=== PATIENT | female | born 1990 | race Caucasian/White ===

== ENCOUNTER 2019-01-01 08:55 | Inpatient (IN) | payer OTHER ==
[2019-01-01] MEDS ORDERED: ceFAZolin 2 GM in Premix Bag 1 BAG IV ONE (09:09)
[2019-01-01] MEDS ORDERED: Sodium Chloride 0.9% 10 ML Syringe FLUSH PRN (09:09)
[2019-01-01] MEDS ORDERED: Sodium Chloride 0.9% 10 ML SDV IV PRN (09:09)
[2019-01-01] MEDS ORDERED: Citric Acid/Sodium Citrate Solution 30 ML Cup PO ONE (09:09)
[2019-01-01] MEDS ORDERED: Sodium Chloride 0.9% 2.5 ML Syringe FLUSH PRN (09:09)
[2019-01-01] MEDS: Lactated Ringers 1,000 ML IV SCH ×2 (09:10→11:09)
[2019-01-01] MEDS ORDERED: Oxytocin/0.9 % Sodium Chloride 30 UNIT/500 ML BAG IV SCH (09:15)
--- NOTE | 2019-01-01 10:22 | PCM.LDHP ---
L&D History of Present Illness - General Date of Service: 01/01/19 Admit Problem/Dx: Patient Status Order with Admit Dx/Problem 01/01/19 09:09 Patient Status [ADT] Routine Admission Diagnosis/Problem Admission Diagnosis/Problem Source of Information: Patient History Limitations: Reports: No Limitations - History of Present Illness Improves with: Reports: None Worsens with: Reports: None Associated Symptoms: Reports: N - Related Data Allergies/Adverse Reactions: Allergies Allergy/AdvReac Type Severity Reaction Status Date / Time No Known Allergies Allergy Verified 12/27/18 11:16 Home Medications: Home Meds valACYclovir [Valtrex] 500 mg PO DAILY 10/30/18 [History] PNV95/Ferrous Fumarate/FA [ Tablet] 1 tab PO DAILY 12/27/18 [History] Past Medical History Gastrointestinal History: Reports: Other (See Below) Other Gastrointestinal History: occasional heartburn during Other Genitourinary History: hx of Vaginal Herpes [employer]EL[employer]KER History: Reports: Dermatologic History: Reports: Other (See Below) Other Dermatologic History: vaginal herpes - Past Surgical History Female Surgical History: Reports: Section Social & Family History - Tobacco Use Smoking Status *Q: Never Smoker - Recreational Drug Use Recreational Drug Use: No Drug Use in Last 12 Months: No H&P Review of Systems - Review of Systems: Review Of Systems: See Below General: Reports: No Symptoms HEENT: Reports: No Symptoms Pulmonary: Reports: No Symptoms Cardiovascular: Reports: No Symptoms Gastrointestinal: Reports: No Symptoms Genitourinary: Reports: No Symptoms Musculoskeletal: Reports: No Symptoms Skin: Reports: No Symptoms Psychiatric: Reports: No Symptoms Neurological: Reports: No Symptoms Hematologic/Lymphatic: Reports: No Symptoms Immunologic: Reports: No Symptoms L&D Exam - Exam Exam: See Below - Vital Signs Weight: 58.513 kg - OB Specific Fundal Height In cm: 38 Contraction Intensity: Moderate - Exam General: Alert, Oriented HEENT: PERRLA, Conjunctiva Clear, EACs Clear, EOMI, Hearing Intact, Mucosa Moist & [place], Nares Patent, Normal Nasal Septum, Posterior Pharynx Clear, TMs Clear Neck: Supple, Trachea Midline Lungs: Clear to Auscultation, Normal Respiratory Effort Cardiovascular: Regular Rate, Regular Rhythm GI/Abdominal Exam: Normal Bowel Sounds, Soft, Non-Tender, No Organomegaly, No Distention, No Abnormal Bruit, No Mass, Pelvis Stable Rectal Exam: Normal Exam, Normal Rectal Tone Genitourinary: Normal external exam, Normal bimanual exam, Normal speculum exam Back Exam: Normal Inspection, Full Range of Motion Extremities: Normal Inspection, Normal Range of Motion, Non-Tender, No Pedal Edema, Normal Capillary Refill Skin: Warm, Dry, Intact Neurological: Cranial Nerves Intact, Reflexes Equal Bilateral Psychiatric: Alert, Normal Affect, Normal Mood - Patient Data Lab Results Last 24 hrs: Laboratory Results - last 24 hr 01/01/19 Range/Units 09:32 WBC 6.28 (4.0-11.0) K/uL RBC 4.59 (4.30-5.90) M/uL Hgb 14.1 (12.0-16.0) g/dL Hct 41.9 (36.0-46.0) % MCV 91.3 (80.0-98.0) fL MCH 30.7 (27.0-32.0) pg MCHC 33.7 (31.0-37.0) g/dL RDW Std Deviation 43.7 (28.0-62.0) fl RDW Coeff of Jazzy 13 (11.0-15.0) % Plt Count 208 (150-400) K/uL MPV 12.00 (7.40-12.00) fL Nucleated RBC % 0.0 /100WBC Nucleated RBCs # 0 K/uL Result Diagrams: 01/01/19 09:32 Problem List Initiated/Reviewed/Updated: Yes Orders Last 24hrs: Active Orders 24 hr Category Date Time Status Patient Status [ADT] Routine ADT 01/01/19 09:09 Active Non Stress Test [RC] PER UNIT ROUTINE Care 01/01/19 09:09 Active Notify Provider Vital Signs [RC] PRN Care 01/01/19 09:13 Active Procedure Site Prep Instruct [RC] ASDIRECTED Care 01/01/19 09:09 Active Up ad Christelle [RC] ASDIRECTED Care 01/01/19 09:09 Active Verify Patient Consent Obtain [RC] ASDIRECTED Care 01/01/19 09:09 Active Vital Signs [RC] PER UNIT ROUTINE Care 01/01/19 09:09 Active TYPE AND SCREEN [BBK] Routine Lab 01/01/19 09:32 Received Lactated Ringers [Ringers, Lactated] 1,000 ml Med 01/01/19 09:15 Active IV BOLUS Oxytocin/0.9 % Sodium Chloride [Oxytocin 30 Unit/500 ML Med 01/01/19 09:15 Active -NS] 30 unit in 500 ml IV TITRATE Sodium Chloride 0.9% [Normal Saline] Med 01/01/19 09:09 Active 10 ml IV ASDIRECTED PRN Sodium Chloride 0.9% [Saline Flush] Med 01/01/19 09:09 Active 10 ml FLUSH ASDIRECTED PRN Sodium Chloride 0.9% [Saline Flush] Med 01/01/19 09:09 Active 2.5 ml FLUSH ASDIRECTED PRN Peripheral IV Insertion Adult [OM.PC] Routine Oth 01/01/19 09:09 Ordered Schedule Procedure [COMM] Per Unit Routine Oth 01/01/19 09:09 Ordered Resuscitation Status Routine Resus Stat 01/01/19 09:09 Ordered Medication Orders Lactated Ringer's (Ringers, Lactated) 1,000 mls @ 500 mls/hr IV BOLUS SIVAN Last Admin: 01/01/19 09:10 Dose: 500 mls/hr Oxytocin/Sodium Chloride (Oxytocin 30 Unit/500 Ml-Ns) 30 unit in 500 mls @ 250 mls/hr IV TITRATE SIVAN Sodium Chloride (Saline Flush) 10 ml FLUSH ASDIRECTED PRN PRN Reason: Keep Vein Open Sodium Chloride (Saline Flush) 2.5 ml FLUSH ASDIRECTED PRN PRN Reason: Keep Vein Open Sodium Chloride (Normal Saline) 10 ml IV ASDIRECTED PRN PRN Reason: IV Use Assessment/Plan Comment:: 28 years old patient part 1001 and she is scheduled for elective section tomorrow she is in active labor we would send her to labor and delivery and possible repeat her section today
--- NOTE | 2019-01-01 10:29 | PCM.PREANE ---
Preanesthetic Assessment - Anesthesia/Transfusion/Family Hx Anesthesia History: Prior Anesthesia Without Reaction (prior C section in 2016 with spinal anesthesia) Family History of Anesthesia Reaction: No Transfusion History: No Prior Transfusion(s) - Review of Systems General: No Symptoms Pulmonary: No Symptoms Cardiovascular: No Symptoms Gastrointestinal: No Symptoms Neurological: No Symptoms Other: Reports: None - Physical Assessment NPO Status Date: 01/01/19 (small muffin and liquid) NPO Status Time: 07:30 Height: 5 ft Weight: 58.513 kg ASA Class: 2 Mental Status: Alert & Oriented x3 Airway Class: Mallampati = 2 Dentition: Reports: Normal Dentition ROM/Head Extension: Full Lungs: Clear to Auscultation, Normal Respiratory Effort Cardiovascular: Regular Rate, Regular Rhythm - Lab Values: Laboratory Last Values WBC 6.28 K/uL (4.0-11.0) 01/01/19 09:32 RBC 4.59 M/uL (4.30-5.90) 01/01/19 09:32 Hgb 14.1 g/dL (12.0-16.0) 01/01/19 09:32 Hct 41.9 % (36.0-46.0) 01/01/19 09:32 MCV 91.3 fL (80.0-98.0) 01/01/19 09:32 MCH 30.7 pg (27.0-32.0) 01/01/19 09:32 MCHC 33.7 g/dL (31.0-37.0) 01/01/19 09:32 RDW Std Deviation 43.7 fl (28.0-62.0) 01/01/19 09:32 RDW Coeff of Jazzy 13 % (11.0-15.0) 01/01/19 09:32 Plt Count 208 K/uL (150-400) 01/01/19 09:32 MPV 12.00 fL (7.40-12.00) 01/01/19 09:32 Nucleated RBC % 0.0 /100WBC 01/01/19 09:32 Nucleated RBCs # 0 K/uL 01/01/19 09:32 - Allergies Allergies/Adverse Reactions: Allergies Allergy/AdvReac Type Severity Reaction Status Date / Time No Known Allergies Allergy Verified 12/27/18 11:16 - Anesthesia Plan Pre-Op Medication Ordered: Antacids (bicitra), Other (pepcid and reglan) - Acknowledgements Anesthesia Type Planned: Spinal Pt an Appropriate Candidate for the Planned Anesthesia: Yes Alternatives and Risks of Anesthesia Discussed w Pt/Guardian: Yes Pt/Guardian Understands and Agrees with Anesthesia Plan: Yes PreAnesthesia Questionnaire Gastrointestinal History: Reports: Other (See Below) Other Gastrointestinal History: occasional heartburn during Other Genitourinary History: hx of Vaginal Herpes [employer]GER History: Reports: Dermatologic History: Reports: Other (See Below) Other Dermatologic History: vaginal herpes - Past Surgical History Female Surgical History: Reports: Section - SUBSTANCE USE Smoking Status *Q: Never Smoker Recreational Drug Use History: No - HOME MEDS Home Medications: Home Meds valACYclovir [Valtrex] 500 mg PO DAILY 10/30/18 [History] PNV95/Ferrous Fumarate/FA [ Tablet] 1 tab PO DAILY 12/27/18 [History] - CURRENT (IN HOUSE) MEDS Current Meds: Current Medications Lactated Ringer's (Ringers, Lactated) 1,000 mls @ 500 mls/hr IV BOLUS SIVAN Last Admin: 01/01/19 09:10 Dose: 500 mls/hr Oxytocin/Sodium Chloride (Oxytocin 30 Unit/500 Ml-Ns) 30 unit in 500 mls @ 250 mls/hr IV TITRATE SIVAN Sodium Chloride (Saline Flush) 10 ml FLUSH ASDIRECTED PRN PRN Reason: Keep Vein Open Sodium Chloride (Saline Flush) 2.5 ml FLUSH ASDIRECTED PRN PRN Reason: Keep Vein Open Sodium Chloride (Normal Saline) 10 ml IV ASDIRECTED PRN PRN Reason: IV Use Discontinued Medications Citric Acid/Sodium Citrate (Bicitra Solution) 30 ml PO ONETIME ONE Stop: 01/01/19 09:10 Cefazolin Sodium/Dextrose 2 gm (/ Premix) 50 mls @ 100 mls/hr IV ONETIME ONE Stop: 01/01/19 09:38
[2019-01-01] MEDS ORDERED: Metoclopramide 10 MG/2 ML SDV IVPUSH ONE (10:30)
[2019-01-01] MEDS ORDERED: Octyl 2-Cyanoacrylate 1 Tube ONE (10:30)
[2019-01-01] MEDS ORDERED: Famotidine 20 MG/2 ML SDV IVPUSH ONE (10:31)
[2019-01-01] MEDS ORDERED: Phenylephrine 1% 10 MG/ML SDV ONE (11:05)
[2019-01-01] MEDS ORDERED: Morphine PF 10 MG/10 ML SDV ONE (11:09)
[2019-01-01] MEDS ORDERED: ceFAZolin/Dextrose,Iso-Osmotic 2 GM/50 ML Duplex Bag IV ONE (11:25)
[2019-01-01] MEDS ORDERED: Metoclopramide 10 MG/2 ML SDV ONE (11:31)
[2019-01-01] MEDS ORDERED: Oxytocin 10 Units/1 ML SDV ONE (11:47)
[2019-01-01] MEDS ORDERED: Oxytocin/0.9 % Sodium Chloride 30 UNIT/500 ML BAG ONE (11:47)
[2019-01-01] MEDS ORDERED: Acetaminophen/oxyCODONE 325-5 MG Tab PO PRN ×2 (11:58→13:22)
[2019-01-01] MEDS ORDERED: Nalbuphine 10 MG/1 ML Vial IVPUSH PRN (11:58)
[2019-01-01] MEDS ORDERED: Ketorolac 30 MG/ML SDV ONE (12:33)
--- NOTE | 2019-01-01 13:08 | PCM.POSTAN ---
POST ANESTHESIA ASSESSMENT - MENTAL STATUS Mental Status: Alert, Oriented - VITAL SIGNS Vital Signs: Last Vital Signs Temp Pulse 99 01/01/19 13:02 Resp 12 01/01/19 13:02 BP 94/64 01/01/19 13:02 Pulse Ox 100 01/01/19 13:02 - RESPIRATORY Respiratory Status: Respiratory Rate WNL, Airway Patent, O2 Saturation Stable - CARDIOVASCULAR CV Status: Pulse Rate WNL, Blood Pressure Stable - GASTROINTESTINAL GI Status: No Symptoms - PAIN Pain Score: 0 - POST OP HYDRATION Hydration Status: Adequate & Stable
[2019-01-01] MEDS ORDERED: Ondansetron 4 MG/2 ML SDV IVPUSH PRN (13:22)
[2019-01-01] MEDS ORDERED: Lanolin 100% Cream 7 GM Tube TOP PRN (13:22)
[2019-01-01] MEDS ORDERED: diphenhydrAMINE 50 MG/ML SDV IVPUSH PRN (13:22)
[2019-01-01] MEDS ORDERED: Bisacodyl 10 MG Supp RECTAL PRN (13:22)
[2019-01-01] MEDS ORDERED: Ibuprofen 800 MG Tab PO PRN (13:22)
--- NOTE | 2019-01-01 13:25 | PCM.OPNOTE ---
- General Post-Op/Procedure Note Date of Surgery/Procedure: 01/01/19 Operative Procedure(s): Repeat C/section. Pre Op Diagnosis: IUP 39+3 previous c/section in labor. Post-Op Diagnosis: Same Anesthesia Technique: Spinal Primary Surgeon: Tonny Rojas EBL in mLs: 650 Complications: None Condition: Good Free Text/Narrative:: Intake & Output 12/31/18 01/01/19 01/01/19 22:59 06:59 14:59 Intake Total 600 Balance 600
[2019-01-01] MEDS ORDERED: Lactated Ringers 1,000 ML IV SCH (13:30)
--- NOTE | 2019-01-01 15:57 | OR ---
SURGEON: Tonny Rojas MD DATE OF PROCEDURE: PREOPERATIVE DIAGNOSES: Intrauterine at 39 plus 3, previous section, in active labor. POSTOPERATIVE DIAGNOSES: Intrauterine at 39 plus 3, previous section, in active labor. OPERATION PERFORMED: Repeat low-transverse section. PRIMARY SURGEON: Tonny Rojas MD. LICENSED OCCUPATIONAL THERAPY ASSISTANT: OR Josselin chisholm. ANESTHESIA: Spinal. ESTIMATED BLOOD LOSS: 650 mL. COMPLICATIONS: None. FINDINGS: Male fetus. score reported to be 8 and 9. Normal uterus, tubes and ovary and weight is not available. INDICATION FOR SURGERY: This patient is 39 plus 3. She had a previous section. She is followed in our clinic. She was to have a repeat section tomorrow; however, she presented to Labor and Delivery in active labor. So decision is made to do her section today. PROCEDURE IN DETAIL: The patient was brought to the OR, properly identified. After adequate level of spinal anesthesia with a Begum catheter in the bladder, the patient was prepped and draped in sterile fashion as usual. Low transverse Pfannenstiel skin incision through the old scar was done. Elis's fascia and rectus fascia were opened in direction of the incision. The 2 recti muscles were and peritoneal cavity was entered. Bladder flap was raised in the usual manner, pushing the bladder away from the lower uterine segment, and low transverse uterine incision was done. Extended manually with hand and fetus was in the vertex position, delivered without any problem, cried immediately. score reported to be 8 and 9. Weight is not available. After handing the fetus to the resuscitating team, the placenta delivered spontaneous, complete, and intact and then repair of the lower uterine segment was done with 2-0 Vicryl continuous interlocking in 2 layers. Reperitonealization done with 3-0 Vicryl continuous and then the peritoneal cavity evacuated completely from all blood and blood clot and closed with 3-0 Vicryl continuous. The rectus fascia was closed with #1 PDS continuous and Elis's fascia with 3-0 Vicryl continuous. The skin closed with 3-0 Vicryl in a subcuticular fashion and Dermabond. Instrument and sponge count was correct. The patient tolerated the procedure well, went to recovery room in stable general condition. MELA / EVA /[id number]
[2019-01-01] MEDS: Ketorolac 30 MG/ML SDV IVPUSH SCH (18:36)
[2019-01-01] MEDS: Docusate Sodium 100 MG Cap PO SCH (21:16)
[2019-01-02] MEDS: Ketorolac 30 MG/ML SDV IVPUSH SCH ×3 (01:42→14:04)
[2019-01-02] MEDS: Docusate Sodium 100 MG Cap PO SCH (07:59)
--- NOTE | 2019-01-02 08:07 | PCM.PNPP ---
- General Info Date of Service: 01/02/19 Functional Status: Reports: Pain Controlled - Review of Systems General: Reports: No Symptoms HEENT: Reports: No Symptoms Pulmonary: Reports: No Symptoms Cardiovascular: Reports: No Symptoms Gastrointestinal: Reports: No Symptoms Genitourinary: Reports: No Symptoms Musculoskeletal: Reports: No Symptoms Skin: Reports: No Symptoms Neurological: Reports: No Symptoms Psychiatric: Reports: No Symptoms - General Info Date of Service: 01/02/19 - Patient Data Vital Signs - Most Recent: Last Vital Signs Temp 37.1 C 01/02/19 07:19 Pulse 89 01/02/19 07:19 Resp 16 01/02/19 07:19 BP 118/66 01/02/19 07:19 Pulse Ox 99 01/02/19 07:19 Weight - Most Recent: 58.513 kg I&O - Last 24 Hours: Intake & Output 01/01/19 01/02/19 01/02/19 22:59 06:59 14:59 Output Total 200 1940 Balance -200 -1940 Lab Results - Last 24 Hours: Laboratory Results - last 24 hr 01/01/19 01/01/19 01/02/19 Range/Units 09:32 09:32 06:02 WBC 6.28 (4.0-11.0) K/uL RBC 4.59 (4.30-5.90) M/uL Hgb 14.1 11.2 L (12.0-16.0) g/dL Hct 41.9 34.0 L (36.0-46.0) % MCV 91.3 (80.0-98.0) fL MCH 30.7 (27.0-32.0) pg MCHC 33.7 (31.0-37.0) g/dL RDW Std Deviation 43.7 (28.0-62.0) fl RDW Coeff of Jazzy 13 (11.0-15.0) % Plt Count 208 (150-400) K/uL MPV 12.00 (7.40-12.00) fL Nucleated RBC % 0.0 /100WBC Nucleated RBCs # 0 K/uL Blood Type A POSITIVE Antibody Screen NEGATIVE Med Orders - Current: Current Medications Bisacodyl (Dulcolax) 10 mg RECTAL ONETIME PRN PRN Reason: Constipation Diphenhydramine HCl (Benadryl) 25 mg IVPUSH Q6H PRN PRN Reason: Itching or Nausea Docusate Sodium (Colace) 100 mg PO BID [facility] Last Admin: 01/02/19 07:59 Dose: 100 mg Emollient Ointment (Lansinoh Hpa) 0 gm TOP ASDIRECTED PRN PRN Reason: Sore Nipples Lactated Ringer's (Ringers, Lactated) 1,000 mls @ 500 mls/hr IV BOLUS [facility] Last Admin: 01/01/19 11:09 Dose: 500 mls/hr Oxytocin/Sodium Chloride (Oxytocin 30 Unit/500 Ml-Ns) 30 unit in 500 mls @ 250 mls/hr IV TITRATE [facility] Lactated Ringer's (Ringers, Lactated) 1,000 mls @ 125 mls/hr IV ASDIRECTED [facility] Last Admin: 01/01/19 16:43 Dose: 125 mls/hr Ibuprofen (Motrin) 800 mg PO Q8H PRN PRN Reason: mild pain or fever Ketorolac Tromethamine (Toradol) 30 mg IVPUSH Q6H [facility] Stop: 01/02/19 13:31 Last Admin: 01/02/19 07:56 Dose: 30 mg Nalbuphine HCl (Nubain) 2.5 mg IVPUSH Q3H PRN PRN Reason: Pruritis Stop: 01/02/19 11:59 Ondansetron HCl (Zofran) 4 mg IVPUSH Q4H PRN PRN Reason: Nausea/Vomiting Oxycodone/Acetaminophen (Percocet 325-5 Mg) 1 tab PO ONETIME PRN PRN Reason: Pain (moderate 4-6) Oxycodone/Acetaminophen (Percocet 325-5 Mg) 1 tab PO Q4H PRN PRN Reason: Pain (moderate 4-6) Oxycodone/Acetaminophen (Percocet 325-5 Mg) 2 tab PO Q4H PRN PRN Reason: Pain (moderate 4-6) Sodium Chloride (Saline Flush) 10 ml FLUSH ASDIRECTED PRN PRN Reason: Keep Vein Open Sodium Chloride (Saline Flush) 2.5 ml FLUSH ASDIRECTED PRN PRN Reason: Keep Vein Open Sodium Chloride (Normal Saline) 10 ml IV ASDIRECTED PRN PRN Reason: IV Use Discontinued Medications Cefazolin Sodium/Dextrose (Ancef) Confirm Administered Dose 2 gm IV .STK-MED ONE Stop: 01/01/19 11:26 Citric Acid/Sodium Citrate (Bicitra Solution) 30 ml PO ONETIME ONE Stop: 01/01/19 09:10 Last Admin: 01/01/19 11:09 Dose: 30 ml Famotidine (Pepcid) 20 mg IVPUSH ONETIME ONE Stop: 01/01/19 10:32 Cefazolin Sodium/Dextrose 2 gm (/ Premix) 50 mls @ 100 mls/hr IV ONETIME ONE Stop: 01/01/19 09:38 Oxytocin/Sodium Chloride (Oxytocin 30 Unit/500 Ml-Ns) Confirm Administered Dose 30 unit in 500 mls @ as directed .ROUTE .STK-MED ONE Stop: 01/01/19 11:48 Ketorolac Tromethamine (Toradol) Confirm Administered Dose 30 mg .ROUTE .STK- MED ONE Stop: 01/01/19 12:34 Metoclopramide HCl (Reglan) 10 mg IVPUSH ONETIME ONE Stop: 01/01/19 10:31 Metoclopramide HCl (Reglan) Confirm Administered Dose 10 mg .ROUTE .STK-MED ONE Stop: 01/01/19 11:32 Morphine Sulfate (Duramorph Pf) Confirm Administered Dose 10 mg .ROUTE .STK-MED ONE Stop: 01/01/19 11:10 Octyl Cyanoacrylate (Dermabond Advance) Confirm Administered Dose 1 applic .ROUTE .STK-MED ONE Stop: 01/01/19 10:31 Oxytocin (Pitocin) Confirm Administered Dose 10 unit .ROUTE .STK-MED ONE Stop: 01/01/19 11:48 Phenylephrine HCl (Jayant-Synephrine) Confirm Administered Dose 10 mg .ROUTE .STK- MED ONE Stop: 01/01/19 11:06 - Interaction Infant Disposition, : in Room with Family Interaction: Holding Infant Feeding: Attempted ; Nursed Fair/Poor - Recovery Exam Fundal Tone: Firm Fundal Level: At Umbilicus Fundal Placement: Midline Lochia Amount: Scant Lochia Color: Rubra/Red Perineum Description: Intact, Minimal Bruising/Swelling Episiotomy/Laceration: None Bladder Status: Indwelling Catheter in Place Urinary Elimination: Indwelling Catheter - Exam General: Alert, Oriented HEENT: Pupils Equal Neck: Supple Lungs: Clear to Auscultation, Normal Respiratory Effort Cardiovascular: Regular Rate, Regular Rhythm GI/Abdominal Exam: Normal Bowel Sounds, Soft, Non-Tender, No Organomegaly, No Distention, No Abnormal Bruit, No Mass, Pelvis Stable Extremities: Normal Inspection, Normal Range of Motion, Non-Tender, No Pedal Edema, Normal Capillary Refill Skin: Warm, Dry, Intact Wound/Incisions: Healing Well Neurological: No New Focal Deficit Psy/Mental Status: Alert, Normal Affect, Normal Mood - Problem List Review Problem List Initiated/Reviewed/Updated: Yes - My Orders Last 24 Hours: My Active Orders 01/01/19 09:09 Sodium Chloride 0.9% [Normal Saline] 10 ml IV ASDIRECTED PRN Sodium Chloride 0.9% [Saline Flush] 10 ml FLUSH ASDIRECTED PRN Sodium Chloride 0.9% [Saline Flush] 2.5 ml FLUSH ASDIRECTED PRN Peripheral IV Insertion Adult [OM.PC] Routine Schedule Procedure [COMM] Per Unit Routine Resuscitation Status Routine 01/01/19 09:13 Notify Provider Vital Signs [RC] PRN 01/01/19 09:15 Lactated Ringers [Ringers, Lactated] 1,000 ml IV BOLUS Oxytocin/0.9 % Sodium Chloride [Oxytocin 30 Unit/500 ML-NS] 30 unit in 500 ml IV TITRATE 01/01/19 13:22 Patient Status [ADT] Routine Ambulate [RC] PER UNIT ROUTINE Communication Order [RC] PER UNIT ROUTINE Communication Order [RC] PER UNIT ROUTINE Communication Order [RC] Per Unit Routine May Shower [RC] ASDIRECTED RT Incentive Spirometry [RC] Q2HWA Vital Signs [RC] PER UNIT ROUTINE Acetaminophen/oxyCODONE [Percocet 325-5 MG] 1 tab PO Q4H PRN Acetaminophen/oxyCODONE [Percocet 325-5 MG] 2 tab PO Q4H PRN Bisacodyl [Dulcolax] 10 mg RECTAL ONETIME PRN Ibuprofen [Motrin] 800 mg PO Q8H PRN Lanolin [Lansinoh HPA] See Dose Instructions TOP ASDIRECTED PRN Ondansetron [Zofran] 4 mg IVPUSH Q4H PRN diphenhydrAMINE [Benadryl] 25 mg IVPUSH Q6H PRN Assess Lochia [WOMSER] Per Unit Routine Assess Uterine Involution [WOMSER] Per Unit Routine Breast Pump [WOMSER] Per Unit Routine Peripheral IV Discontinue [OM.PC] Routine Sequential Compression Device [OM.PC] Per Unit Routine 01/01/19 13:23 Antiembolic Devices [RC] PER UNIT ROUTINE 01/01/19 13:30 Ketorolac [Toradol] 30 mg IVPUSH Q6H Lactated Ringers [Ringers, Lactated] 1,000 ml IV ASDIRECTED 01/01/19 21:00 Docusate Sodium [Colace] 100 mg PO BID 01/01/19 Dinner Regular Diet [DIET] - Assessment Assessment:: S/P repeat C/section doing well - Plan Plan:: 28 years old patient part 1001 and she is scheduled for elective section tomorrow she is in active labor we would send her to labor and delivery and possible repeat her section today
[2019-01-03] MEDS: Acetaminophen/oxyCODONE 325-5 MG Tab PO PRN ×2 (03:21→08:25)
[2019-01-03 07:48] VITALS: BP 123/71
[2019-01-03] MEDS: Docusate Sodium 100 MG Cap PO SCH (08:24)
--- NOTE | 2019-01-03 09:16 | PCM48HPAN ---
Post Anesthesia Note - EVALUATION WITHIN 48HRS OF ANESTHETIC Vital Signs in Normal Range: Yes Patient Participated in Evaluation: Yes Respiratory Function Stable: Yes Airway Patent: Yes Cardiovascular Function Stable: Yes Hydration Status Stable: Yes Pain Control Satisfactory: Yes Nausea and Vomiting Control Satisfactory: Yes Mental Status Recovered: Yes Vital Signs: Last Vital Signs Temp 36.4 C 01/03/19 07:47 Pulse 77 01/03/19 07:47 Resp 16 01/03/19 07:47 BP 123/71 01/03/19 07:47 Pulse Ox 98 01/03/19 07:47 - COMMENTS/OBSERVATIONS Free Text/Narrative:: Patient doing well. Getting ready for discharge. Denies complications or concerns related to anesthesia/spinal.
--- NOTE | 2019-01-03 09:43 | PCM.DCSUM1 ---
Discharge Summary - Hospital Course Diagnosis: Stroke: No - Discharge Data Discharge Date: 01/03/19 Discharge Disposition: Home, Self-Care 01 Condition: Good - Patient Summary/Data Operative Procedure(s) Performed: Repeat C/section. - Patient Instructions Diet: Usual Diet as Tolerated Activity: As Tolerated Driving: Do Not Drive Showering/Bathing: May Shower Wound/Incision Care: Keep Operative Site/Wound Site Clean and Dry - Discharge Plan Home Medications: Home Meds valACYclovir [Valtrex] 500 mg PO DAILY 10/30/18 [History] PNV95/Ferrous Fumarate/FA [ Tablet] 1 tab PO DAILY 12/27/18 [History] Referrals: [facility] [Outside] Tonny Rojas MD [Physician] - ( week@ w/ week- February 12@3:00pm w/ Dr. Rojas ) - Discharge Summary/Plan Comment DC Time >30 min.: Yes - General Info Date of Service: 01/03/19 Functional Status: Reports: Pain Controlled - Review of Systems General: Reports: No Symptoms HEENT: Reports: No Symptoms Pulmonary: Reports: No Symptoms Cardiovascular: Reports: No Symptoms Gastrointestinal: Reports: No Symptoms Genitourinary: Reports: No Symptoms Musculoskeletal: Reports: No Symptoms Skin: Reports: No Symptoms Neurological: Reports: No Symptoms Psychiatric: Reports: No Symptoms - Patient Data Vitals - Most Recent: Last Vital Signs Temp 36.4 C 01/03/19 07:47 Pulse 77 01/03/19 07:47 Resp 16 01/03/19 07:47 BP 123/71 01/03/19 07:47 Pulse Ox 98 01/03/19 07:47 Weight - Most Recent: 58.513 kg Med Orders - Current: Current Medications Bisacodyl (Dulcolax) 10 mg RECTAL ONETIME PRN PRN Reason: Constipation Diphenhydramine HCl (Benadryl) 25 mg IVPUSH Q6H PRN PRN Reason: Itching or Nausea Docusate Sodium (Colace) 100 mg PO BID SIVAN Last Admin: 01/03/19 08:24 Dose: 100 mg Emollient Ointment (Lansinoh Hpa) 0 gm TOP ASDIRECTED PRN PRN Reason: Sore Nipples Lactated Ringer's (Ringers, Lactated) 1,000 mls @ 500 mls/hr IV [facility]US [facility] Last Admin: 01/01/19 11:09 Dose: 500 mls/hr Oxytocin/Sodium Chloride (Oxytocin 30 Unit/500 Ml-Ns) 30 unit in 500 mls @ 250 mls/hr IV TITRATE [facility] Lactated Ringer's (Ringers, Lactated) 1,000 mls @ 125 mls/hr IV ASDIRECTED [facility] Last Admin: 01/01/19 16:43 Dose: 125 mls/hr Ibuprofen (Motrin) 800 mg PO Q8H PRN PRN Reason: mild pain or fever Ondansetron HCl (Zofran) 4 mg IVPUSH Q4H PRN PRN Reason: Nausea/Vomiting Oxycodone/Acetaminophen (Percocet 325-5 Mg) 1 tab PO ONETIME PRN PRN Reason: Pain (moderate 4-6) Oxycodone/Acetaminophen (Percocet 325-5 Mg) 1 tab PO Q4H PRN PRN Reason: Pain (moderate 4-6) Last Admin: 01/03/19 08:25 Dose: 1 tab Oxycodone/Acetaminophen (Percocet 325-5 Mg) 2 tab PO Q4H PRN PRN Reason: Pain (moderate 4-6) Sodium Chloride (Saline Flush) 10 ml FLUSH ASDIRECTED PRN PRN Reason: Keep Vein Open Sodium Chloride (Saline Flush) 2.5 ml FLUSH ASDIRECTED PRN PRN Reason: Keep Vein Open Sodium Chloride (Normal Saline) 10 ml IV ASDIRECTED PRN PRN Reason: IV Use Discontinued Medications Cefazolin Sodium/Dextrose (Ancef) Confirm Administered Dose 2 gm IV .STK-MED ONE Stop: 01/01/19 11:26 Citric Acid/Sodium Citrate (Bicitra Solution) 30 ml PO ONETIME ONE Stop: 01/01/19 09:10 Last Admin: 01/01/19 11:09 Dose: 30 ml Famotidine (Pepcid) 20 mg IVPUSH ONETIME ONE Stop: 01/01/19 10:32 Cefazolin Sodium/Dextrose 2 gm (/ Premix) 50 mls @ 100 mls/hr IV ONETIME ONE Stop: 01/01/19 09:38 Oxytocin/Sodium Chloride (Oxytocin 30 Unit/500 Ml-Ns) Confirm Administered Dose 30 unit in 500 mls @ as directed .ROUTE .STK-MED ONE Stop: 01/01/19 11:48 Ketorolac Tromethamine (Toradol) Confirm Administered Dose 30 mg .ROUTE .STK- MED ONE Stop: 01/01/19 12:34 Ketorolac Tromethamine (Toradol) 30 mg IVPUSH Q6H SIVAN Stop: 01/02/19 13:31 Last Admin: 01/02/19 14:04 Dose: 30 mg Metoclopramide HCl (Reglan) 10 mg IVPUSH ONETIME ONE Stop: 01/01/19 10:31 Metoclopramide HCl (Reglan) Confirm Administered Dose 10 mg .ROUTE .STK-MED ONE Stop: 01/01/19 11:32 Morphine Sulfate (Duramorph Pf) Confirm Administered Dose 10 mg .ROUTE .STK-MED ONE Stop: 01/01/19 11:10 Nalbuphine HCl (Nubain) 2.5 mg IVPUSH Q3H PRN PRN Reason: Pruritis Stop: 01/02/19 11:59 Octyl Cyanoacrylate (Dermabond Advance) Confirm Administered Dose 1 applic .ROUTE .STK-MED ONE Stop: 01/01/19 10:31 Oxytocin (Pitocin) Confirm Administered Dose 10 unit .ROUTE .STK-MED ONE Stop: 01/01/19 11:48 Phenylephrine HCl (Jayant-Synephrine) Confirm Administered Dose 10 mg .ROUTE .STK- MED ONE Stop: 01/01/19 11:06 - Exam General: Reports: Alert, Oriented HEENT: Reports: Pupils Equal, Pupils Reactive, EOMI, Mucous Membr. Moist/[place] Neck: Reports: Supple Lungs: Reports: Clear to Auscultation, Normal Respiratory Effort Cardiovascular: Reports: Regular Rate, Regular Rhythm GI/Abdominal Exam: Normal Bowel Sounds, Soft, Non-Tender, No Organomegaly, No Distention, No Abnormal Bruit, No Mass, Pelvis Stable (Female) Exam: Normal External Exam, Normal Speculum Exam, Normal Bimanual Exam Rectal (Female) Exam: Normal Exam, Normal Rectal Tone Back Exam: Reports: Normal Inspection, Full Range of Motion Extremities: Normal Inspection, Normal Range of Motion, Non-Tender, No Pedal Edema, Normal Capillary Refill Skin: Reports: Warm, Dry, Intact Wound/Incisions: Reports: Healing Well Neurological: Reports: No New Focal Deficit Psy/Mental Status: Reports: Alert, Normal Affect, Normal Mood
== END 2019-01-03 10:50 | disposition home or self-care (01) | DRG 787 ==
LOC: MW.OB 08:55 → UNDOADMIN 08:55 → MW.OB 11:43
PROVIDERS: ADMIT Obstetrics & Gynecology; ATTEND Obstetrics & Gynecology
PROC: 10D00Z1 Extraction of Products of Conception, Low, Open Approach (ICD-10-PCS; principal; 2019-01-01)
DX: O34.211 Maternal care for low transverse scar from previous cesarean delivery (principal); O98.52 Other viral diseases complicating childbirth; B00.9 Herpesviral infection, unspecified; Z37.0 Single live birth; Z3A.39 39 weeks gestation of pregnancy
CPT/HCPCS: 36415; 59025; 85014; 85018; 85027; 86850; 86900; 86901; A9270-GY; J0690; J1885; J2270; J2370; J2590; J2765; J7120

== ENCOUNTER 2020-12-18 10:28 | Emergency (ER) | payer OTHER ==
[2020-12-18] MEDS ORDERED: Sodium Chloride 0.9% 2.5 ML Syringe FLUSH PRN (10:38)
[2020-12-18] MEDS ORDERED: Sodium Chloride 0.9% 10 ML Syringe FLUSH PRN (10:38)
--- NOTE | 2020-12-18 10:43 | EDM.PDOC ---
ED HPI GENERAL MEDICAL PROBLEM - General Chief Complaint: Neuro Symptoms/Deficits Stated Complaint: slurred speech Time Seen by Provider: 12/18/20 10:38 - History of Present Illness INITIAL COMMENTS - FREE TEXT/NARRATIVE: History of present illness: [] The patient reports he had paresthesia of all the right upper extremity yesterday and briefly today. During those times for about 1/2-hour yesterday morning and 1/2-hour this morning she had slow speech difficulty having continuous sentence formation. The words came out occasionally had an obvious substitution like when she wanted to say her head hurt she said her wallet hurt. The patient is non-smoker and not diabetic. She sees Dr. Bullard for her . She is 21 weeks . According to the she had an episode like this in the past and it was a migraine and passed on its own. Review of systems: As per history of present illness and below otherwise all systems reviewed and negative. Past medical history: As per history of present illness and as reviewed below otherwise noncontributory. Surgical history: As per history of present illness and as reviewed below otherwise noncontributory. Social history: No reported history of drug or alcohol abuse. Family history: As per history of present illness and as reviewed below otherwise noncontributory. Physical exam: Constitutional - well developed, well-nourished and in no acute distress HEENT - normocephalic, no evidence of trauma - external nose and mouth normal - no mass in neck and no JVD - mucosae moist EYES - full EOM, PERRL, no icterus - no evidence of inflammation, injection, or drainage Respiratory - no respiratory distress, equal bilateral expansion, lungs clear to auscultation and no abnormal lung sounds Cardiovascular - Regular Rhythm with S1 and S2 appreciated and no murmur, gallop or rub. GI - abdomen soft without distension or organomegaly - normal bowel sounds - no guard or rebound Musculoskeletal no gross deformity of long bones or joints - no tenderness, swelling or edema Neurologic - Alert and oriented times four - CN II-XII grossly intact - motor sensory and coordination symmetrically normal. The patient appears anxious and when she tries to speak she says correct words both in [place] and Slovenian but they come out slowly with some hesitation. At this point she is not substituting words. Psychiatric - appropriate mood and affect with normal thought content Hematologic - No petechiae or purpura - mucosa appropriate color and sclera not pale - normal nail bed color and refill Integument - no rash or evidence of trauma - normal turgor Diagnostics: [] Therapeutics: [] Impression: [] Plan: [] Definitive disposition and diagnosis as appropriate pending reevaluation and review of above. 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 ED EXAM, GENERAL - Physical Exam Exam: See Below Free Text/Narrative:: My physical exam is in the HPI #1 Interpretation EKG Interpretation Comments: EKG sinus rhythm heart rate 94 [place] 146 [place] [address] and T impression normal EKG Course - Vital Signs Text/Narrative:: Radiologist said the patient has chronic sinusitis on the CT but no acute bleed. She does have an Arnold-Chiari malformation. 11:[address] Rojas. He will follow up in 2 days. Last Recorded V/S: Last Vital Signs Temp 36.7 C 12/18/20 10:29 Pulse 100 12/18/20 11:48 Resp 14 12/18/20 11:48 BP 100/60 12/18/20 11:48 Pulse Ox 98 12/18/20 11:48 - Orders/Labs/Meds Orders: Active Orders 24 hr Category Date Time Status EKG Documentation Completion [RC] AM Care 12/18/20 10:38 Active Sodium Chloride 0.9% [Saline Flush] Med 12/18/20 10:38 Active 10 ml FLUSH ASDIRECTED PRN Sodium Chloride 0.9% [Saline Flush] Med 12/18/20 10:38 Active 2.5 ml FLUSH ASDIRECTED PRN Saline Lock Insert [OM.PC] Stat Oth 12/18/20 10:38 Ordered Medication Orders Sodium Chloride (Sodium Chloride 0.9% 10 Ml Syringe) 10 ml FLUSH ASDIRECTED PRN PRN Reason: Keep Vein Open Last Admin: 12/18/20 10:51 Dose: 10 ml Documented by: JAROCHO Sodium Chloride (Sodium Chloride 0.9% 2.5 Ml Syringe) 2.5 ml FLUSH ASDIRECTED PRN PRN Reason: Keep Vein Open Last Admin: 12/18/20 10:51 Dose: 2.5 ml Documented by: JAROCHO Labs: Laboratory Tests 12/18/20 12/18/20 12/18/20 Range/Units 10:34 10:34 10:34 WBC 6.71 (4.0-11.0) K/uL RBC 4.32 (4.30-5.90) M/uL Hgb 13.5 (12.0-16.0) g/dL Hct 38.8 (36.0-46.0) % MCV 89.8 (80.0-98.0) fL MCH 31.3 (27.0-32.0) pg MCHC 34.8 (31.0-37.0) g/dL RDW Std Deviation 41.0 (28.0-62.0) fl RDW Coeff of Jazzy 13 (11.0-15.0) % Plt Count 241 (150-400) K/uL MPV 10.90 (7.40-12.00) fL Neut % (Auto) 63.3 (48.0-80.0) % Lymph % (Auto) 25.5 (16.0-40.0) % [place] % (Auto) 7.2 (0.0-15.0) % Eos % (Auto) 3.9 (0.0-7.0) % Baso % (Auto) 0.1 (0.0-1.5) % Neut # (Auto) 4.3 (1.4-5.7) K/uL Lymph # (Auto) 1.7 (0.6-2.4) K/uL [place] # (Auto) 0.5 (0.0-0.8) K/uL Eos # (Auto) 0.3 (0.0-0.7) K/uL Baso # (Auto) 0.0 (0.0-0.1) K/uL Nucleated RBC % 0.0 /100WBC Nucleated RBCs # 0 K/uL INR 0.93 APTT 28.1 (18.6-31.3) SEC Sodium 135 L (136-145) mmol/L Potassium 3.9 (3.5-5.1) mmol/L Chloride 102 (98-107) mmol/L Carbon Dioxide 25.4 (21.0-32.0) mmol/L BUN 9 (7.0-18.0) mg/dL Creatinine 0.6 (0.6-1.0) mg/dL Est Cr Clr Drug Dosing 97.58 mL/min Estimated GFR (MDRD) > 60.0 ml/min Glucose 81 (74-106) mg/dL Calcium 8.2 L (8.5-10.1) mg/dL Total Bilirubin 0.2 (0.2-1.0) mg/dL AST 16 (15-37) IU/L ALT 14 (14-63) IU/L Alkaline Phosphatase 69 (46-116) U/L Total Protein 7.5 (6.4-8.2) g/dL Albumin 2.8 L (3.4-5.0) g/dL Globulin 4.7 H (2.6-4.0) g/dL Albumin/Globulin Ratio 0.6 L (0.9-1.6) Free T4 (0.76-1.46) ng/dL Free T3 (2.18-3.98) pg/mL TSH, Ultra Sensitive 4.76 H (0.36-3.74) uIU/mL 12/18/20 Range/Units 10:34 WBC (4.0-11.0) K/uL RBC (4.30-5.90) M/uL Hgb (12.0-16.0) g/dL Hct (36.0-46.0) % MCV (80.0-98.0) fL MCH (27.0-32.0) pg MCHC (31.0-37.0) g/dL RDW Std Deviation (28.0-62.0) fl RDW Coeff of Jazyz (11.0-15.0) % Plt Count (150-400) K/uL MPV (7.40-12.00) fL Neut % (Auto) (48.0-80.0) % Lymph % (Auto) (16.0-40.0) % [place] % (Auto) (0.0-15.0) % Eos % (Auto) (0.0-7.0) % Baso % (Auto) (0.0-1.5) % Neut # (Auto) (1.4-5.7) K/uL Lymph # (Auto) (0.6-2.4) K/uL [place] # (Auto) (0.0-0.8) K/uL Eos # (Auto) (0.0-0.7) K/uL Baso # (Auto) (0.0-0.1) K/uL Nucleated RBC % /100WBC Nucleated RBCs # K/uL INR APTT (18.6-31.3) SEC Sodium (136-145) mmol/L Potassium (3.5-5.1) mmol/L Chloride (98-107) mmol/L Carbon Dioxide (21.0-32.0) mmol/L BUN (7.0-18.0) mg/dL Creatinine (0.6-1.0) mg/dL Est Cr Clr Drug Dosing mL/min Estimated GFR (MDRD) ml/min Glucose (74-106) mg/dL Calcium (8.5-10.1) mg/dL Total Bilirubin (0.2-1.0) mg/dL AST (15-37) IU/L ALT (14-63) IU/L Alkaline Phosphatase (46-116) U/L Total Protein (6.4-8.2) g/dL Albumin (3.4-5.0) g/dL Globulin (2.6-4.0) g/dL Albumin/Globulin Ratio (0.9-1.6) Free T4 0.82 (0.76-1.46) ng/dL Free T3 2.21 (2.18-3.98) pg/mL TSH, Ultra Sensitive (0.36-3.74) uIU/mL Meds: Medications Generic Name Dose Route Start Last Admin Trade Name Freq PRN Reason Stop Dose Admin Sodium Chloride 10 ml 12/18/20 10:38 12/18/20 10:51 Sodium Chloride 0.9% 10 Ml Syringe FLUSH 10 ml ASDIRECTED PRN Administration Keep Vein Open Sodium Chloride 2.5 ml 12/18/20 10:38 12/18/20 10:51 Sodium Chloride 0.9% 2.5 Ml Syringe FLUSH 2.5 ml ASDIRECTED PRN Administration Keep Vein Open Departure - Departure Time of Disposition: 11:51 Disposition: Home, Self-Care 01 Condition: Good Clinical Impression: Vascular headache - Discharge Information Instructions: Migraine Headache, [id number], Sinus Headache Referrals: Tonny Rojas MD [Primary Care Provider] - Forms: ED Department Discharge Additional Instructions: Dr. Aleksandra Mcconnell is able to see you on Sunday. The following information is given to patients seen in the emergency department who are being discharged to home. This information is to outline your options for follow-up care. We provide all patients seen in our emergency department with a follow-up referral. The need for follow-up, as well as the timing and circumstances, are variable depending upon the specifics of your emergency department visit. If you don't have a primary care physician on staff, we will provide you with a referral. We always advise you to contact your personal physician following an emergency department visit to inform them of the circumstance of the visit and for follow-up with them and/or the need for any referrals to a consulting specialist. The emergency department will also refer you to a specialist when appropriate. This referral assures that you have the opportunity for follow-up care with a specialist. All of these measure are taken in an effort to provide you with optimal care, which includes your follow-up. Under all circumstances we always encourage you to contact your private physician who remains a resource for coordinating your care. When calling for follow-up care, please make the office aware that this follow-up is from your recent emergency room visit. If for any reason you are refused follow-up, please contact the [facility] Emergency Department at and asked to speak to the emergency department charge nurse. Sepsis Event Note (ED) - Focused Exam Vital Signs: Vital Signs Temp Pulse Resp BP Pulse Ox 12/18/20 11:48 100 14 100/60 98 12/18/20 11:03 95 16 105/53 L 99 12/18/20 10:45 105 H 16 129/70 99 12/18/20 10:29 36.7 C 113 H 18 144/84 H 99 - My Orders Last 24 Hours: My Active Orders 12/18/20 10:38 EKG Documentation Completion [RC] AM Sodium Chloride 0.9% [Saline Flush] 10 ml FLUSH ASDIRECTED PRN Sodium Chloride 0.9% [Saline Flush] 2.5 ml FLUSH ASDIRECTED PRN Saline Lock Insert [OM.PC] Stat - Assessment/Plan Last 24 Hours: My Active Orders 12/18/20 10:38 EKG Documentation Completion [RC] AM Sodium Chloride 0.9% [Saline Flush] 10 ml FLUSH ASDIRECTED PRN Sodium Chloride 0.9% [Saline Flush] 2.5 ml FLUSH ASDIRECTED PRN Saline Lock Insert [OM.PC] Stat
--- NOTE | 2020-12-18 11:01 | CT ---
Indication: Aphasia and paresthesias. Pt is 21 wks , form signed by pt for scan Technique: CT of the head without contrast. Coronal and sagittal reformats. Bone and soft tissue windows. Comparison: No prior studies available for comparison at this institution. Findings: No acute intracranial hemorrhage or extra-axial collection. No evidence of acute cortical infarction. No mass effect or midline shift. Normal cerebral volume. The ventricles are normal in size, shape and contour. There is normal lizarraga and white matter differentiation. Low lying cerebellar tonsils measuring 6 millimeters below the foramen magnum bilaterally The orbital contents are normal. No calvarial fractures. No lytic or sclerotic osseous lesions within the calvarium or skull base. Scalp and other imaged soft tissue structures are normal. Mastoid air cells are clear. Paranasal sinuses are well aerated. Moderate mucosal thickening in the maxillary sinuses, sphenoid sinuses, and ethmoid air cells with moderate opacification of left frontal sinus. Findings called to Dr. Haas at 10:59 a.m. Impression: 1. No acute intracranial abnormality. 2. Low lying cerebellar tonsils, please correlate for Chiari I malformation symptoms. 3. moderate paranasal sinus disease. Please note that all CT scans at this facility use dose modulation, iterative reconstruction, and/or weight-based dosing when appropriate to reduce radiation dose to as low as reasonably achievable. Dictated by Milan Hickman MD @ 12/18/2020 11:00:[address] Milan Hickman @ Dec 18 2020 11:00AM
[2020-12-18 11:10] LABS: BLOOD UREA NITROGEN,BUN 9 mg/dL (7.0-18.0); CARBON DIOXIDE,CO2 25.4 mmol/L (21.0-32.0); CHLORIDE,CL 102 mmol/L (98-107); GLUCOSE RANDOM 81 mg/dL (74-106); POTASSIUM,K 3.9 mmol/L (3.5-5.1); SODIUM,NA 135 mmol/L (136-145)
[2020-12-18 11:49] VITALS: BP 100/60; PULSE 100
== END 2020-12-18 11:58 | disposition home or self-care (01) ==
LOC: MW.ED 10:28
DX: G44.1 Vascular headache, not elsewhere classified (principal)
CPT/HCPCS: 36415; 70450; 70450-26; 80053; 84439; 84443; 84481; 85025; 85610; 85730; 93005; 99285-25

== ENCOUNTER 2021-04-22 11:46 | Inpatient (IN) | payer OTHER ==
[2021-04-22] MEDS ORDERED: Citric Acid/Sodium Citrate Solution 30 ML Cup PO ONE (11:55)
[2021-04-22] MEDS ORDERED: Dexamethasone 4 MG/ML SDV IVPUSH ONE (11:55)
[2021-04-22] MEDS ORDERED: ceFAZolin 1 GM in Premix Bag 1 BAG IV ONE (11:55)
[2021-04-22] MEDS ORDERED: Ondansetron 4 MG/2 ML SDV IVPUSH PRN ×2 (11:55→17:18)
[2021-04-22] MEDS ORDERED: Famotidine 20 MG/2 ML SDV IVPUSH ONE (11:55)
[2021-04-22] MEDS ORDERED: Sodium Chloride 0.9% 2.5 ML Syringe FLUSH PRN (11:55)
[2021-04-22] MEDS ORDERED: Sodium Chloride 0.9% 10 ML Syringe FLUSH PRN (11:55)
[2021-04-22] MEDS ORDERED: Sodium Chloride 0.9% 20 ML SDV IV PRN (11:55)
[2021-04-22] MEDS ORDERED: Oxytocin/0.9 % Sodium Chloride 30 UNIT/500 ML BAG IV SCH (12:00)
[2021-04-22] MEDS: Lactated Ringers 1,000 ML IV SCH ×3 (12:45→16:04)
[2021-04-22] MEDS ORDERED: Ropivacaine HCl/PF 200 ML ONE (13:37)
[2021-04-22] MEDS ORDERED: ePHEDrine 50 MG/ML SDV IVPUSH PRN (14:07)
--- NOTE | 2021-04-22 14:12 | PCM.PREANE ---
Preanesthetic Assessment - Procedure Proposed Procedure: with current labor pain. - Anesthesia/Transfusion/Family Hx Anesthesia History: Prior Anesthesia Without Reaction Family History of Anesthesia Reaction: No Transfusion History: No Prior Transfusion(s) - Review of Systems General: No Symptoms Pulmonary: No Symptoms Cardiovascular: No Symptoms Gastrointestinal: No Symptoms Neurological: No Symptoms Other: Reports: None - Physical Assessment NPO Status Date: 04/22/21 NPO Status Time: 12:00 Height: 1.52 m Weight: 63.503 kg ASA Class: 2 Mental Status: Alert & Oriented x3 Airway Class: Mallampati = 2 Dentition: Reports: Normal Dentition Thyro-Mental Finger Breadths: 3 Mouth Opening Finger Breadths: 3 ROM/Head Extension: Full Lungs: Clear to Auscultation, Normal Respiratory Effort Cardiovascular: Regular Rate, Regular Rhythm - Lab Values: Laboratory Last Values WBC 4.67 K/uL (4.0-11.0) 04/22/21 12:58 RBC 4.22 M/uL (4.30-5.90) L 04/22/21 12:58 Hgb 11.7 g/dL (12.0-16.0) L 04/22/21 12:58 Hct 35.8 % (36.0-46.0) L 04/22/21 12:58 MCV 84.8 fL (80.0-98.0) 04/22/21 12:58 MCH 27.7 pg (27.0-32.0) 04/22/21 12:58 MCHC 32.7 g/dL (31.0-37.0) 04/22/21 12:58 RDW Std Deviation 41.4 fl (28.0-62.0) 04/22/21 12:58 RDW Coeff of Jazzy 14 % (11.0-15.0) 04/22/21 12:58 Plt Count 213 K/uL (150-400) 04/22/21 12:58 MPV 11.80 fL (7.40-12.00) 04/22/21 12:58 Nucleated RBC % 0.0 /100WBC 04/22/21 12:58 Nucleated RBCs # 0 K/uL 04/22/21 12:58 - Allergies Allergies/Adverse Reactions: Allergies Allergy/AdvReac Type Severity Reaction Status Date / Time No Known Allergies Allergy Verified 04/22/21 11:55 - Blood Blood Available: Yes Product(s) Available: PRBC (Type and screen) - Anesthesia Plan Pre-Op Medication Ordered: None - Acknowledgements Anesthesia Type Planned: Epidural Pt an Appropriate Candidate for the Planned Anesthesia: Yes Alternatives and Risks of Anesthesia Discussed w Pt/Guardian: Yes Pt/Guardian Understands and Agrees with Anesthesia Plan: Yes Additional Comments: Patient is prior and Dr. Rojas states he must proceed with due to patient being in active labor. surgeon states he is unavailable until 1630 and that procedure cannot be delayed further than 1630. Patient is having pain 8/10 with contractions. decision made between surgeon, Patient, and RESEARCH GENETICIST to place epidural now for labor pain and dose for t 1630. 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: Musculoskeletal History: Reports: None Neurological History: Reports: Migraines Psychiatric History: Reports: None Endocrine/Metabolic History: Reports: None Hematologic History: Reports: None Immunologic History: Reports: None Oncologic (Cancer) History: Reports: None Dermatologic History: Reports: Other (See Below) Other Dermatologic History: vaginal herpes - Infectious Disease History Infectious Disease History: Reports: Chicken Pox, Herpes - Past Surgical History Head Surgeries/Procedures: Reports: None GI Surgical History: Reports: None Female Surgical History: Reports: Section Musculoskeletal Surgical History: Reports: None Dermatological Surgical History: Reports: None - SUBSTANCE USE Tobacco Use Status *Q: Never Tobacco User Second Hand Smoke Exposure: No Recreational Drug Use History: No - HOME MEDS Home Medications: Home Meds Pnv No.95/Ferrous Fum/Folic AC [ Tablet] 1 tab PO DAILY 12/27/18 [History] - CURRENT (IN HOUSE) MEDS Current Meds: Current Medications Oxytocin/Sodium Chloride (Oxytocin 30 Unit In Ns 0.9% 500 Ml Premix) 30 unit in 500 mls @ 250 mls/hr IV TITRATE SIVAN Lactated Ringer's (Ringers, Lactated) 1,000 mls @ 500 mls/hr IV BOLUS SIVAN Last Admin: 04/22/21 13:20 Dose: 999 mls/hr Documented by: Ondansetron HCl (Ondansetron 4 Mg/2 Ml Sdv) 4 mg IVPUSH Q4H PRN PRN Reason: Nausea/Vomiting Sodium Chloride (Sodium Chloride 0.9% 10 Ml Syringe) 10 ml FLUSH ASDIRECTED PRN PRN Reason: Keep Vein Open Sodium Chloride (Sodium Chloride 0.9% 2.5 Ml Syringe) 2.5 ml FLUSH ASDIRECTED PRN PRN Reason: Keep Vein Open Sodium Chloride (Sodium Chloride 0.9% 20 Ml Sdv) 10 ml IV ASDIRECTED PRN PRN Reason: IV Use Discontinued Medications Citric Acid/Sodium Citrate (Citric Acid/Sodium Citrate Solution 30 Ml Cup) 30 ml PO ONETIME ONE Stop: 04/22/21 11:56 Dexamethasone (Dexamethasone 4 Mg/Ml Sdv) 8 mg IVPUSH ONETIME ONE Stop: 04/22/21 11:56 Famotidine (Famotidine 20 Mg/2 Ml Sdv) 20 mg IVPUSH ONETIME ONE Stop: 04/22/21 11:56 Cefazolin Sodium/Dextrose 1 gm (/ Premix) 50 mls @ 100 mls/hr IV ONETIME ONE Stop: 04/22/21 12:24 Ropivacaine (Naropin 0.2%) Confirm Administered Dose 200 mls @ as directed .ROUTE .STK-MED ONE Stop: 04/22/21 13:38
[2021-04-22] MEDS ORDERED: Ropivacaine/PF 400 MG/200 ML PCA EPIDUR SCH (14:15)
--- NOTE | 2021-04-22 14:15 | PCM.SN.2 ---
- Pre-Procedure Checklist Attending Provider Aware: Yes Chart Reviewed: Yes Consent Signed: Yes Labs Reviewed: Yes VS/FHR Reviewed: Yes Patient Identification Confirmation Method: Reports: Chart Visual, Verbal Patient Pt an Appropriate Candidate for the Planned Anesthesia: Yes Alternatives and Risks of Anesthesia Discussed w Pt/Guardian: Yes - Procedure Procedure Start Date: 04/22/21 Procedure Start Time: 13:15 (Procedure start delayed due to lab results) Monitors in Place: Reports: Blood Pressure, Heart Rate, SPO2 Functional IV: Yes Bolus Infused (fluid type and amount): 1200 ml LR Safety Measures: Reports: Patient Identified, Procedure Verified, Site Verified, Procedure Time Out Patient Position: Reports: Sitting Prep: Reports: Betadine x3 Local Anesthetic: Reports: Intradermal Wheal w Lidocaine 1% (3 ml) Needle: Reports: 17 g Touhy Approach: Reports: Midline Technique: Reports: ACE Glass Syringe ACE Needle Depth (cm): 6 cm Parasthesia: Reports: None Fluid Obtained: Reports: None Catheter Depth at Skin (cm): 15 cm Test Dose Time: 13:32 Test Dose Medication: Reports: Lidocaine 1.5% w Epinephrine 1:200,000 (5 ml) Test Dose Response: Reports: Negative Loading Dose Time: 13:41 (6 ml bolus) Loading Dose Medication: Ropivicaine 0.2% Loading Dose Patient Position: Supine Continuous Infusion Start Time: 13:42 Continuous Infusion Medication: Ropivicaine 0.2% Continuous Infusion Rate: 14 Continuous Infusion PCS Bolus Option: 4 Continuous Infusion Lockout Dose (cc/hr): 15 (min lockout) Patient Position Post Placement: Reports: Supline/DHEERAJ Post-procedure Pain Level: 0 Level Achieved: T4 VS and FHR Monitored in Unit Post Placement: Yes Procedure End Date: 04/22/21 Procedure End Time: 14:15 Procedure Comment: Sterile technique used throughout
--- NOTE | 2021-04-22 14:16 | PCM.POSTAN ---
POST ANESTHESIA ASSESSMENT - MENTAL STATUS Mental Status: Alert, Oriented - RESPIRATORY Respiratory Status: Respiratory Rate WNL, Airway Patent, O2 Saturation Stable - CARDIOVASCULAR CV Status: Pulse Rate WNL, Blood Pressure Stable - GASTROINTESTINAL GI Status: No Symptoms - POST OP HYDRATION Hydration Status: Adequate & Stable
--- NOTE | 2021-04-22 14:57 | PCM.LDHP ---
L&D History of Present Illness - General Date of Service: 04/22/21 Admit Problem/Dx: Patient Status Order with Admit Dx/Problem 04/22/21 11:55 Patient Status [ADT] Routine Admission Diagnosis/Problem Admission Diagnosis/Problem Source of Information: Patient History Limitations: Reports: No Limitations - History of Present Illness Improves with: Reports: None Worsens with: Reports: None Associated Symptoms: Reports: N - Related Data Allergies/Adverse Reactions: Allergies Allergy/AdvReac Type Severity Reaction Status Date / Time No Known Allergies Allergy Verified 04/22/21 11:55 Home Medications: Home Meds Pnv No.95/Ferrous Fum/Folic AC [ Tablet] 1 tab PO DAILY 12/27/18 [Histor y] Past Medical History - Past Health History Medical/Surgical History: Denies Medical/Surgical History HEENT History: Reports: None Cardiovascular History: Reports: None Respiratory History: Reports: None Gastrointestinal History: Reports: Other (See Below) Other Gastrointestinal History: occasional heartburn during Genitourinary History: Reports: STD Other Genitourinary History: hx of Vaginal Herpes [employer]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: Musculoskeletal History: Reports: None Neurological History: Reports: Migraines Psychiatric History: Reports: None Endocrine/Metabolic History: Reports: None Hematologic History: Reports: None Immunologic History: Reports: None Oncologic (Cancer) History: Reports: None Dermatologic History: Reports: Other (See Below) Other Dermatologic History: vaginal herpes - Infectious Disease History Infectious Disease History: Reports: Chicken Pox, Herpes - Past Surgical History Head Surgeries/Procedures: Reports: None GI Surgical History: Reports: None Female Surgical History: Reports: Section Musculoskeletal Surgical History: Reports: None Dermatological Surgical History: Reports: None Social & Family History - Family History Family Medical History: No Pertinent Family History HEENT: Reports: None Cardiac: Reports: None Respiratory: Reports: None GI: Reports: None : Reports: None OBGYN: Reports: Musculoskeletal: Reports: None Neurological: Reports: None Psychiatric: Reports: Schizophrenia Endocrine/Metabolic: Reports: Diabetes, Type I Hematologic: Reports: None Immunologic: Reports: None Dermatologic: Reports: None Oncologic: Reports: None - Tobacco Use Tobacco Use Status *Q: Never Tobacco User Second Hand Smoke Exposure: No - Caffeine Use Caffeine Use: Reports: Soda - Recreational Drug Use Recreational Drug Use: No Drug Use in Last 12 Months: No H&P Review of Systems - Review of Systems: Review Of Systems: See Below General: Reports: No Symptoms HEENT: Reports: No Symptoms Pulmonary: Reports: No Symptoms Cardiovascular: Reports: No Symptoms Gastrointestinal: Reports: No Symptoms Genitourinary: Reports: No Symptoms Musculoskeletal: Reports: No Symptoms Skin: Reports: No Symptoms Psychiatric: Reports: No Symptoms Neurological: Reports: No Symptoms Hematologic/Lymphatic: Reports: No Symptoms Immunologic: Reports: No Symptoms L&D Exam - Exam Exam: See Below - Vital Signs Weight: 63.503 kg - OB Specific Contraction Intensity: Moderate Movement: Active Heart Tones: Present Presentation: Vertex - Aguilar Score Aguilar Score Cervix Position: Midposition Aguilar Score Consistency: Soft Aguilar Score Effacement: >80% Aguilar Score Dilation: 1-2 cm Aguilar Score 's Station: -3 Aguilar Score Total: 7 - Exam General: Alert, Oriented HEENT: PERRLA, Conjunctiva Clear, EACs Clear, EOMI, Hearing Intact, Mucosa Moist & Barnard, Nares Patent, Normal Nasal Septum, Posterior Pharynx Clear, TMs Clear Neck: Supple, Trachea Midline Lungs: Clear to Auscultation, Normal Respiratory Effort Cardiovascular: Regular Rate, Regular Rhythm GI/Abdominal Exam: Normal Bowel Sounds, Soft, Non-Tender, No Organomegaly, No Distention, No Abnormal Bruit, No Mass, Pelvis Stable Rectal Exam: Normal Exam, Normal Rectal Tone Genitourinary: Normal external exam, Normal bimanual exam, Normal speculum exam Back Exam: Normal Inspection, Full Range of Motion Extremities: Normal Inspection, Normal Range of Motion, Non-Tender, No Pedal Edema, Normal Capillary Refill Skin: Warm, Dry, Intact Neurological: Cranial Nerves Intact, Reflexes Equal Bilateral Psychiatric: Alert, Normal Affect, Normal Mood - Patient Data Lab Results Last 24 hrs: Laboratory Results - last 24 hr 04/22/21 04/22/21 Range/Units 12:45 12:58 WBC 4.67 (4.0-11.0) K/uL RBC 4.22 L (4.30-5.90) M/uL Hgb 11.7 L (12.0-16.0) g/dL Hct 35.8 L (36.0-46.0) % MCV 84.8 (80.0-98.0) fL MCH 27.7 (27.0-32.0) pg MCHC 32.7 (31.0-37.0) g/dL RDW Std Deviation 41.4 (28.0-62.0) fl RDW Coeff of Jazzy 14 (11.0-15.0) % Plt Count 213 (150-400) K/uL MPV 11.80 (7.40-12.00) fL Nucleated RBC % 0.0 /100WBC Nucleated RBCs # 0 K/uL Blood Type A POSITIVE Antibody Screen NEGATIVE Result Diagrams: 04/22/21 12:58 Problem List Initiated/Reviewed/Updated: Yes Orders Last 24hrs: Active Orders 24 hr Category Date Time Status Patient Status [ADT] Routine ADT 04/22/21 11:55 Active Antiembolic Devices [RC] PER UNIT ROUTINE Care 04/22/21 11:58 Active Communication Order [RC] PRN Care 04/22/21 14:07 Active Non Stress Test [RC] PER UNIT ROUTINE Care 04/22/21 11:55 Active Insert Urinary Catheter [OM.PC] Routine Care 04/22/21 11:55 Ordered Notify Provider Vital Signs [RC] PRN Care 04/22/21 12:01 Active Procedure Site Prep Instruct [RC] ASDIRECTED Care 04/22/21 11:55 Active Up ad Christelle [RC] ASDIRECTED Care 04/22/21 11:55 Active Urinary Catheter Assessment [RC] ASDIRECTED Care 04/22/21 11:58 Active Verify Patient Consent Obtain [RC] ASDIRECTED Care 04/22/21 11:55 Active Vital Signs [RC] PER UNIT ROUTINE Care 04/22/21 11:55 Active RPR (SYPHILIS SERO) W/ RFLX [REF] Routine Lab 04/22/21 12:27 Received Lactated Ringers [Ringers, Lactated] 1,000 ml Med 04/22/21 12:00 Active IV BOLUS Ondansetron [Zofran] Med 04/22/21 11:55 Active 4 mg IVPUSH Q4H PRN Oxytocin/0.9 % Sodium Chloride [Oxytocin 30 Unit in NS Med 04/22/21 12:00 Active 0.9% 500 ML Premix] 30 unit in 500 ml IV TITRATE Phenylephrine HCl In 0.9% NaCl [Phenylephrine 1 MG/10 Med 04/22/21 14:07 Active ML-NS] 0.1 mg IVPUSH Q1M PRN Ropivacaine HCl/PF [Ropivacaine 0.2% PREPRESS TECHNICIAN 400 MG in 200 Med 04/22/21 14:15 Active ML] 400 mg EPIDUR ASDIRECTED Sodium Chloride 0.9% [Normal Saline] Med 04/22/21 11:55 Active 10 ml IV ASDIRECTED PRN Sodium Chloride 0.9% [Saline Flush] Med 04/22/21 11:55 Active 10 ml FLUSH ASDIRECTED PRN Sodium Chloride 0.9% [Saline Flush] Med 04/22/21 11:55 Active 2.5 ml FLUSH ASDIRECTED PRN ePHEDrine [ePHEDrine sulfate] Med 04/22/21 14:07 Active 10 mg IVPUSH Q1M PRN Peripheral IV Insertion Adult [OM.PC] Routine Oth 04/22/21 11:55 Ordered Schedule Procedure [COMM] Per Unit Routine Oth 04/22/21 11:55 Ordered Sequential Compression Device [OM.PC] Routine Oth 04/22/21 11:55 Ordered Resuscitation Status Routine Resus Stat 04/22/21 11:55 Ordered Medication Orders Ephedrine Sulfate (Ephedrine 50 Mg/Ml Sdv) 10 mg IVPUSH Q1M PRN PRN Reason: Hypotension Oxytocin/Sodium Chloride (Oxytocin 30 Unit In Ns 0.9% 500 Ml Premix) 30 unit in 500 mls @ 250 mls/hr IV TITRATE [facility] Lactated Ringer's (Ringers, Lactated) 1,000 mls @ 500 mls/hr IV BOLUS [facility] Admin: 04/22/21 13:20 Dose: 999 mls/hr Documented by: Infusion: 04/22/21 13:20 Dose: 999 mls/hr Documented by: Admin: 04/22/21 12:45 Dose: 999 mls/hr Documented by: ZAKIA Miscellaneous Medication (Phenylephrine Hcl In 0.9% Nacl 1 Mg/10 Ml Syringe) 0.1 mg IVPUSH Q1M PRN PRN Reason: Hypotension Ondansetron HCl (Ondansetron 4 Mg/2 Ml Sdv) 4 mg IVPUSH Q4H PRN PRN Reason: Nausea/Vomiting Ropivacaine (Ropivacaine/Pf 400 Mg/200 Ml Automat Watcher) 400 mg EPIDUR ASDIRECTED SIVAN Sodium Chloride (Sodium Chloride 0.9% 10 Ml Syringe) 10 ml FLUSH ASDIRECTED PRN PRN Reason: Keep Vein Open Sodium Chloride (Sodium Chloride 0.9% 2.5 Ml Syringe) 2.5 ml FLUSH ASDIRECTED PRN PRN Reason: Keep Vein Open Sodium Chloride (Sodium Chloride 0.9% 20 Ml Sdv) 10 ml IV ASDIRECTED PRN PRN Reason: IV Use Assessment/Plan Comment:: Term status post previous section she came to the office today with elevated blood pressure and dad regular contraction the patient sent to labor and delivery for monitoring she is having regular contraction every 2-3 minute and she is dilated 1 cm 80% vertex and -3. The patient is scheduled for elective repeat section in May 13, 2021 end and move the fact that she is in active labor 9 we will proceed with repeat section today.
[2021-04-22] MEDS ORDERED: Octyl 2-Cyanoacrylate 1 Tube ONE (16:14)
[2021-04-22] MEDS ORDERED: Famotidine 20 MG/2 ML SDV ONE (16:50)
[2021-04-22] MEDS ORDERED: Dexamethasone 10 MG/ML SDV ONE (16:51)
[2021-04-22] MEDS ORDERED: Acetaminophen 1,000 MG in Premix Bag 1 BAG IV ONE (17:00)
[2021-04-22] MEDS ORDERED: Tranexamic Acid 1,000 MG in Sodium Chloride 0.9% 100 ML IV PRN (17:18)
[2021-04-22] MEDS ORDERED: Ibuprofen 800 MG Tab PO PRN (17:18)
[2021-04-22] MEDS ORDERED: Methylergonovine 0.2 MG/1 ML Amp IM PRN (17:18)
[2021-04-22] MEDS ORDERED: Oxytocin 10 Units/1 ML SDV IM PRN (17:18)
[2021-04-22] MEDS ORDERED: diphenhydrAMINE 50 MG/ML SDV IVPUSH PRN (17:18)
[2021-04-22] MEDS ORDERED: Misoprostol 200 MCG Tab RECTAL PRN (17:18)
[2021-04-22] MEDS ORDERED: Lanolin 100% Cream 7 GM Tube TOP PRN (17:18)
[2021-04-22] MEDS ORDERED: Acetaminophen/oxyCODONE 325-5 MG Tab PO PRN (17:18)
[2021-04-22] MEDS ORDERED: Bisacodyl 10 MG Supp RECTAL PRN (17:18)
--- NOTE | 2021-04-22 17:22 | PCM.OPNOTE ---
- General Post-Op/Procedure Note Date of Surgery/Procedure: 04/22/21 Operative Procedure(s): Repeat C/section. Pre Op Diagnosis: IUP term previous C/section in labor Post-Op Diagnosis: Same Anesthesia Technique: Epidural Primary Surgeon: Tonny Rojas EBL in mLs: 600 Complications: None Condition: Good
[2021-04-22] MEDS ORDERED: Lactated Ringers 1,000 ML IV SCH (17:30)
[2021-04-22] MEDS ORDERED: Ropivacaine 0.5% 5 MG/ML 30 ML SDV ONE (17:53)
[2021-04-22] MEDS ORDERED: Water For Injection, Sterile 20 ML ONE (17:57)
[2021-04-22] MEDS ORDERED: fentaNYL 100 MCG/2 ML SDV IVPUSH PRN (18:13)
[2021-04-22] MEDS ORDERED: fentaNYL 100 MCG/2 ML SDV ONE (18:19)
[2021-04-22] MEDS: Ketorolac 30 MG/ML SDV IVPUSH SCH (18:30)
--- NOTE | 2021-04-22 19:31 | PCM48HPAN ---
Post Anesthesia Note - EVALUATION WITHIN 48HRS OF ANESTHETIC Vital Signs in Normal Range: Yes Patient Participated in Evaluation: Yes Respiratory Function Stable: Yes Airway Patent: Yes Cardiovascular Function Stable: Yes Hydration Status Stable: Yes Pain Control Satisfactory: Yes Nausea and Vomiting Control Satisfactory: Yes Mental Status Recovered: Yes - COMMENTS/OBSERVATIONS Free Text/Narrative:: Epidural catheter removed after C Section with tip intact.
--- NOTE | 2021-04-22 19:34 | PCM.SN.2 ---
- Free Text/Narrative Note: Tap block performed with ultra sound guidance. area prepped with chlorhexadine and ultrasound used to guide needle. 20 ML of 0.25% Ropivicaine given bilaterally. patient rated pain 10/10 prior to block and 3/10 following block. VSS and sterile technique maintained throughout procedure.
[2021-04-22] MEDS ORDERED: HYDROmorphone 1 MG/ML Syringe IVPUSH PRN (19:47)
[2021-04-22] MEDS: Acetaminophen/oxyCODONE 325-5 MG Tab PO PRN (23:57)
[2021-04-23] MEDS: Ketorolac 30 MG/ML SDV IVPUSH SCH ×4 (00:19→19:05)
[2021-04-23] MEDS: Docusate Sodium 100 MG Cap PO SCH ×3 (00:25→20:26)
[2021-04-23] MEDS: Acetaminophen/oxyCODONE 325-5 MG Tab PO PRN ×4 (04:10→20:26)
--- NOTE | 2021-04-23 10:02 | PCM.PNPP ---
- General Info Date of Service: 04/23/21 Functional Status: Reports: Pain Controlled - Review of Systems General: Reports: No Symptoms HEENT: Reports: No Symptoms Pulmonary: Reports: No Symptoms Cardiovascular: Reports: No Symptoms Gastrointestinal: Reports: No Symptoms Genitourinary: Reports: No Symptoms Musculoskeletal: Reports: No Symptoms Skin: Reports: No Symptoms Neurological: Reports: No Symptoms Psychiatric: Reports: No Symptoms - General Info Date of Service: 04/23/21 - Patient Data Vital Signs - Most Recent: Last Vital Signs Temp 37.0 C 04/23/21 04:00 Pulse 76 04/23/21 06:00 Resp 19 04/23/21 04:00 BP 138/72 04/23/21 06:00 Pulse Ox 96 04/23/21 04:00 Weight - Most Recent: 63.503 kg I&O - Last 24 Hours: Intake & Output 04/22/21 04/23/21 04/23/21 22:59 06:59 14:59 Intake Total 1000 Output Total 150 1800 Balance -150 -800 Lab Results - Last 24 Hours: Laboratory Results - last 24 hr 04/22/21 04/22/21 04/23/21 Range/Units 12:45 12:58 06:26 WBC 4.67 (4.0-11.0) K/uL RBC 4.22 L (4.30-5.90) M/uL Hgb 11.7 L 10.6 L (12.0-16.0) g/dL Hct 35.8 L 32.3 L (36.0-46.0) % MCV 84.8 (80.0-98.0) fL MCH 27.7 (27.0-32.0) pg MCHC 32.7 (31.0-37.0) g/dL RDW Std Deviation 41.4 (28.0-62.0) fl RDW Coeff of Jazzy 14 (11.0-15.0) % Plt Count 213 (150-400) K/uL MPV 11.80 (7.40-12.00) fL Nucleated RBC % 0.0 /100WBC Nucleated RBCs # 0 K/uL Blood Type A POSITIVE Antibody Screen NEGATIVE Med Orders - Current: Current Medications Bisacodyl (Bisacodyl 10 Mg Supp) 10 mg RECTAL ONETIME PRN PRN Reason: Constipation Diphenhydramine HCl (Diphenhydramine 50 Mg/Ml Sdv) 25 mg IVPUSH Q6H PRN PRN Reason: Itching or Nausea Docusate Sodium (Docusate Sodium 100 Mg Cap) 100 mg PO BID [facility] Last Admin: 04/23/21 08:15 Dose: 100 mg Documented by: Emollient Ointment (Lanolin 100% Cream 7 Gm Tube) 0 gm TOP ASDIRECTED PRN PRN Reason: Sore Nipples Ephedrine Sulfate (Ephedrine 50 Mg/Ml Sdv) 10 mg IVPUSH Q1M PRN PRN Reason: Hypotension Fentanyl (Fentanyl 100 Mcg/2 Ml Sdv) 25 mcg IVPUSH Q5M PRN PRN Reason: Pain Hydromorphone HCl (Hydromorphone 1 Mg/Ml Syringe) 0.5 mg IVPUSH ASDIRECTED PRN PRN Reason: Pain (moderate 4-6) Last Admin: 04/22/21 20:18 Dose: 0.5 mg Documented by: Oxytocin/Sodium Chloride (Oxytocin 30 Unit In Ns 0.9% 500 Ml Premix) 30 unit in 500 mls @ 250 mls/hr IV TITRATE [facility] Lactated Ringer's (Ringers, Lactated) 1,000 mls @ 500 mls/hr IV BOLUS [facility] Last Admin: 04/22/21 16:04 Dose: 150 mls/hr Documented by: Lactated Ringer's (Ringers, Lactated) 1,000 mls @ 125 mls/hr IV ASDIRECTED [facility] Last Admin: 04/22/21 22:54 Dose: 125 mls/hr Documented by: Tranexamic Acid 1,000 mg/ (Sodium Chloride) 110 mls @ 660 mls/hr IV ONETIME PRN PRN Reason: Bleeding Ibuprofen (Ibuprofen 800 Mg Tab) 800 mg PO Q8H PRN PRN Reason: Cramping Ketorolac Tromethamine (Ketorolac 30 Mg/Ml Sdv) 30 mg IVPUSH Q6H [facility] Stop: 04/23/21 17:31 Last Admin: 04/23/21 06:29 Dose: 30 mg Documented by: Methylergonovine Maleate (Methylergonovine 0.2 Mg/1 Ml Amp) 0.2 mg IM ONETIME PRN PRN Reason: Excessive Vaginal Bleeding Miscellaneous Medication (Phenylephrine Hcl In 0.9% Nacl 1 Mg/10 Ml Syringe) 0.1 mg IVPUSH Q1M PRN PRN Reason: Hypotension Misoprostol (Misoprostol 200 Mcg Tab) 1,000 mcg RECTAL ONETIME PRN PRN Reason: excessive bleeding Ondansetron HCl (Ondansetron 4 Mg/2 Ml Sdv) 4 mg IVPUSH Q4H PRN PRN Reason: Nausea/Vomiting Ondansetron HCl (Ondansetron 4 Mg/2 Ml Sdv) 4 mg IVPUSH Q4H PRN PRN Reason: Nausea/Vomiting Oxycodone/Acetaminophen (Acetaminophen/Oxycodone 325-5 Mg Tab) 1 tab PO Q4H PRN PRN Reason: Pain (severe 7-10) Last Admin: 04/23/21 08:15 Dose: 1 tab Documented by: Oxycodone/Acetaminophen (Acetaminophen/Oxycodone 325-5 Mg Tab) 2 tab PO Q4H PRN PRN Reason: Pain (severe 7-10) Oxytocin (Oxytocin 10 Units/1 Ml Sdv) 10 unit IM ASDIRECTED PRN PRN Reason: Excessive Vaginal Bleeding Ropivacaine (Ropivacaine/Pf 400 Mg/200 Ml Tar Kettle Runner) 400 mg EPIDUR ASDIRECTED SIVAN Sodium Chloride (Sodium Chloride 0.9% 10 Ml Syringe) 10 ml FLUSH ASDIRECTED PRN PRN Reason: Keep Vein Open Sodium Chloride (Sodium Chloride 0.9% 2.5 Ml Syringe) 2.5 ml FLUSH ASDIRECTED PRN PRN Reason: Keep Vein Open Sodium Chloride (Sodium Chloride 0.9% 20 Ml Sdv) 10 ml IV ASDIRECTED PRN PRN Reason: IV Use Discontinued Medications Citric Acid/Sodium Citrate (Citric Acid/Sodium Citrate Solution 30 Ml Cup) 30 ml PO ONETIME ONE Stop: 04/22/21 11:56 Last Admin: 04/22/21 18:29 Dose: Not Given Documented by: Dexamethasone (Dexamethasone 4 Mg/Ml Sdv) 8 mg IVPUSH ONETIME ONE Stop: 04/22/21 11:56 Last Admin: 04/22/21 18:29 Dose: Not Given Documented by: Dexamethasone (Dexamethasone 10 Mg/Ml Sdv) Confirm Administered Dose 10 mg .ROUTE .STK-MED ONE Stop: 04/22/21 16:52 Last Admin: 04/22/21 18:29 Dose: Not Given Documented by: Famotidine (Famotidine 20 Mg/2 Ml Sdv) 20 mg IVPUSH ONETIME ONE Stop: 04/22/21 11:56 Last Admin: 04/22/21 18:29 Dose: Not Given Documented by: Famotidine (Famotidine 20 Mg/2 Ml Sdv) Confirm Administered Dose 20 mg .ROUTE .STK-MED ONE Stop: 04/22/21 16:51 Last Admin: 04/22/21 18:29 Dose: Not Given Documented by: Fentanyl (Fentanyl 100 Mcg/2 Ml Sdv) Confirm Administered Dose 100 mcg .ROUTE .STK-MED ONE Stop: 04/22/21 18:20 Last Admin: 04/22/21 18:35 Dose: Not Given Documented by: Cefazolin Sodium/Dextrose 1 gm (/ Premix) 50 mls @ 100 mls/hr IV ONETIME ONE Stop: 04/22/21 12:24 Last Admin: 04/22/21 18:29 Dose: Not Given Documented by: Ropivacaine (Naropin 0.2%) Confirm Administered Dose 200 mls @ as directed .ROUTE .STK-MED ONE Stop: 04/22/21 13:38 Last Admin: 04/22/21 18:29 Dose: Not Given Documented by: Acetaminophen 1,000 mg/ Premix 100 mls @ 400 mls/hr IV ONETIME ONE Stop: 04/22/21 17:14 Last Admin: 04/22/21 18:02 Dose: 400 mls/hr Documented by: Sterile Water (Sterile Water For Injection) Confirm Administered Dose 20 mls @ as directed .ROUTE .STK-MED ONE Stop: 04/22/21 17:58 Octyl Cyanoacrylate (Octyl 2-Cyanoacrylate 1 Tube) Confirm Administered Dose 1 applic .ROUTE .STK-MED ONE Stop: 04/22/21 16:15 Last Admin: 04/22/21 18:29 Dose: Not Given Documented by: Ropivacaine (Ropivacaine 0.5% 5 Mg/Ml 30 Ml Sdv) Confirm Administered Dose 30 ml .ROUTE .STK-MED ONE Stop: 04/22/21 17:54 - Interaction Infant Disposition, : in Room with Family Infant Interaction: Holding Infant Feeding: Attempted ; Nursed Fair/Poor Support Person: Significant Other - Recovery Exam Fundal Tone: Firm Fundal Level: At Umbilicus Fundal Placement: Midline Lochia Amount: Scant Lochia Color: Rubra/Red Bladder Status: Indwelling Catheter in Place Urinary Elimination: Indwelling Catheter - Exam General: Alert, Oriented HEENT: Pupils Equal Neck: Supple Lungs: Clear to Auscultation, Normal Respiratory Effort Cardiovascular: Regular Rate, Regular Rhythm GI/Abdominal Exam: Normal Bowel Sounds, Soft, Non-Tender, No Organomegaly, No Distention, No Abnormal Bruit, No Mass, Pelvis Stable Extremities: Normal Inspection, Normal Range of Motion, Non-Tender, No Pedal Edema, Normal Capillary Refill Skin: Warm, Dry, Intact Wound/Incisions: Healing Well Neurological: No New Focal Deficit Psy/Mental Status: Alert, Normal Affect, Normal Mood - Problem List Review Problem List Initiated/Reviewed/Updated: Yes - My Orders Last 24 Hours: My Active Orders 04/22/21 11:55 Insert Urinary Catheter [OM.PC] Routine Up ad Christelle [RC] ASDIRECTED Verify Patient Consent Obtain [RC] ASDIRECTED Sodium Chloride 0.9% [Normal Saline] 10 ml IV ASDIRECTED PRN Sodium Chloride 0.9% [Saline Flush] 10 ml FLUSH ASDIRECTED PRN Sodium Chloride 0.9% [Saline Flush] 2.5 ml FLUSH ASDIRECTED PRN Peripheral IV Insertion Adult [OM.PC] Routine Schedule Procedure [COMM] Per Unit Routine Sequential Compression Device [OM.PC] Routine Resuscitation Status Routine 04/22/21 11:58 Urinary Catheter Assessment [RC] ASDIRECTED 04/22/21 12:00 Lactated Ringers [Ringers, Lactated] 1,000 ml IV BOLUS Oxytocin/0.9 % Sodium Chloride [Oxytocin 30 Unit in NS 0.9% 500 ML Premix] 30 unit in 500 ml IV TITRATE 04/22/21 12:01 Notify Provider Vital Signs [RC] PRN 04/22/21 12:27 RPR (SYPHILIS SERO) W/ RFLX [REF] Routine 04/22/21 17:18 Patient Status [ADT] Routine Ambulate [RC] PER UNIT ROUTINE Communication Order [RC] PER UNIT ROUTINE Communication Order [RC] PER UNIT ROUTINE Communication Order [RC] Per Unit Routine May Shower [RC] ASDIRECTED RT Incentive Spirometry [RC] Q2HWA Vital Signs [RC] PER UNIT ROUTINE Acetaminophen/oxyCODONE [Percocet 325-5 MG] 1 tab PO Q4H PRN Acetaminophen/oxyCODONE [Percocet 325-5 MG] 2 tab PO Q4H PRN Ibuprofen [Motrin] 800 mg PO Q8H PRN Lanolin [Lansinoh HPA] See Dose Instructions TOP ASDIRECTED PRN Methylergonovine [Methergine] 0.2 mg IM ONETIME PRN Ondansetron [Zofran] 4 mg IVPUSH Q4H PRN Oxytocin [Pitocin] 10 unit IM ASDIRECTED PRN Tranexamic Acid [Cyklokapron] 1,000 mg Sodium Chloride 0.9% [Normal Saline] 100 ml IV ONETIME bisacodyL [Dulcolax] 10 mg RECTAL ONETIME PRN diphenhydrAMINE [Benadryl] 25 mg IVPUSH Q6H PRN miSOPROStoL [Cytotec] 1,000 mcg RECTAL ONETIME PRN Assess Lochia [WOMSER] Per Unit Routine Assess Uterine Involution [WOMSER] Per Unit Routine Breast Pump [WOMSER] Per Unit Routine Peripheral IV Discontinue [OM.PC] Routine Sequential Compression Device [OM.PC] Per Unit Routine 04/22/21 17:19 Antiembolic Devices [RC] PER UNIT ROUTINE 04/22/21 17:30 Ketorolac [Toradol] 30 mg IVPUSH Q6H Lactated Ringers [Ringers, Lactated] 1,000 ml IV ASDIRECTED 04/22/21 21:00 Docusate Sodium [Colace] 100 mg PO BID 04/23/21 Breakfast Regular Diet [DIET] - Assessment Assessment:: S/P repeat C/section doing well. will send home in am. - Plan Plan:: Term status post previous section she came to the office today with elevated blood pressure and dad regular contraction the patient sent to labor and delivery for monitoring she is having regular contraction every 2-3 minute and she is dilated 1 cm 80% vertex and -3. The patient is scheduled for elective repeat section in May 13, 2021 end and move the fact that she is in active labor 9 we will proceed with repeat section today.
--- NOTE | 2021-04-23 12:34 | OR ---
SURGEON: Tonny Rojas MD DATE OF PROCEDURE: 04/22/2021 PREOPERATIVE DIAGNOSES: 1. Intrauterine at 38, +6. 2. Previous section x2. 3. In active labor. POSTOPERATIVE DIAGNOSES: 1. Intrauterine at 38, +6. 2. Previous section x2. 3. In active labor. OPERATION PERFORMED: Repeat low transverse section. PRIMARY SURGEON: Tonny Rojas MD ROLL ON MAN: OR tech. ANESTHESIA: Epidural, Mr. Cliff Leiva. ESTIMATED BLOOD LOSS: 600 mL. COMPLICATIONS: None. FINDINGS: Male fetus. score reported to be 8 and 9. Weight is not available. INDICATIONS FOR SURGERY: This patient is . She had two previous sections. She was scheduled for elective repeat section on the 25 of April; however, she presented to the clinic and then monitored in Labor and Delivery and she had regular contractions, she dilated, so a decision is made to do her repeat section today. PROCEDURE IN DETAIL: Patient was brought to the OR, properly identified. After adequate level of epidural anesthesia with a Begum catheter in the bladder, the patient prepped and draped in sterile fashion as usual. Low transverse Pfannenstiel skin incision through the old scar was done. Elis fascia, rectus fascia were opened in direction of the incision. The two recti muscles were and peritoneal cavity was entered. Bladder flap was raised in the usual manner pushing the bladder away from the lower uterine segment. Low transverse uterine incision was done and extended manually with the hand. Fetus was delivered. It was in the vertex position, delivered without any problem. Cried immediately. score reported to be 8 and 9. Weight was not available. The fetus was handed to the contract mail carrier and the resuscitating team. The placenta delivered spontaneous, complete, and intact and repair of the lower uterine segment done with 2-0 Vicryl continuous interlocking in two layers. The peritoneal cavity evacuated completely from all blood and blood clot and closed with 3-0 Vicryl continuous. The rectus fascia was closed with #1 PDS single strand continuous, the Elis fascia with 3-0 Vicryl continuous, skin closed with 3-0 on a Ramiro needle in subcuticular fashion and Dermabond. Instrument and sponge count were correct. The patient tolerated the procedure well, went to recovery room in stable general condition. MELA / EVA /[id number]
[2021-04-24] MEDS: Acetaminophen/oxyCODONE 325-5 MG Tab PO PRN ×3 (00:33→11:24)
[2021-04-24] MEDS: Docusate Sodium 100 MG Cap PO SCH (08:48)
[2021-04-24 08:59] VITALS: BP 118/56; PULSE 81
--- NOTE | 2021-04-24 10:34 | PCM.PNPP ---
- General Info Date of Service: 04/24/21 Functional Status: Reports: Pain Controlled - Review of Systems General: Reports: No Symptoms HEENT: Reports: No Symptoms Pulmonary: Reports: No Symptoms Cardiovascular: Reports: No Symptoms Gastrointestinal: Reports: No Symptoms Genitourinary: Reports: No Symptoms Musculoskeletal: Reports: No Symptoms Skin: Reports: No Symptoms Neurological: Reports: No Symptoms Psychiatric: Reports: No Symptoms - General Info Date of Service: 04/24/21 - Patient Data Vital Signs - Most Recent: Last Vital Signs Temp 36.2 C 04/24/21 08:00 Pulse 81 04/24/21 08:00 Resp 18 04/24/21 08:00 BP 118/56 L 04/24/21 08:00 Pulse Ox 97 04/24/21 08:00 Weight - Most Recent: 63.503 kg Med Orders - Current: Current Medications Bisacodyl (Bisacodyl 10 Mg Supp) 10 mg RECTAL ONETIME PRN PRN Reason: Constipation Diphenhydramine HCl (Diphenhydramine 50 Mg/Ml Sdv) 25 mg IVPUSH Q6H PRN PRN Reason: Itching or Nausea Docusate Sodium (Docusate Sodium 100 Mg Cap) 100 mg PO BID [facility] Last Admin: 04/24/21 08:48 Dose: 100 mg Documented by: Emollient Ointment (Lanolin 100% Cream 7 Gm Tube) 0 gm TOP ASDIRECTED PRN PRN Reason: Sore Nipples Ephedrine Sulfate (Ephedrine 50 Mg/Ml Sdv) 10 mg IVPUSH Q1M PRN PRN Reason: Hypotension Fentanyl (Fentanyl 100 Mcg/2 Ml Sdv) 25 mcg IVPUSH Q5M PRN PRN Reason: Pain Hydromorphone HCl (Hydromorphone 1 Mg/Ml Syringe) 0.5 mg IVPUSH ASDIRECTED PRN PRN Reason: Pain (moderate 4-6) Last Admin: 04/22/21 20:18 Dose: 0.5 mg Documented by: Oxytocin/Sodium Chloride (Oxytocin 30 Unit In Ns 0.9% 500 Ml Premix) 30 unit in 500 mls @ 250 mls/hr IV TITRATE [facility] Lactated Ringer's (Ringers, Lactated) 1,000 mls @ 500 mls/hr IV BOLUS [facility] Last Admin: 04/22/21 16:04 Dose: 150 mls/hr Documented by: Lactated Ringer's (Ringers, Lactated) 1,000 mls @ 125 mls/hr IV ASDIRECTED [facility] Last Admin: 04/22/21 22:54 Dose: 125 mls/hr Documented by: Tranexamic Acid 1,000 mg/ (Sodium Chloride) 110 mls @ 660 mls/hr IV ONETIME PRN PRN Reason: Bleeding Ibuprofen (Ibuprofen 800 Mg Tab) 800 mg PO Q8H PRN PRN Reason: Cramping Last Admin: 04/24/21 08:50 Dose: 800 mg Documented by: Methylergonovine Maleate (Methylergonovine 0.2 Mg/1 Ml Amp) 0.2 mg IM ONETIME PRN PRN Reason: Excessive Vaginal Bleeding Miscellaneous Medication (Phenylephrine Hcl In 0.9% Nacl 1 Mg/10 Ml Syringe) 0.1 mg IVPUSH Q1M PRN PRN Reason: Hypotension Misoprostol (Misoprostol 200 Mcg Tab) 1,000 mcg RECTAL ONETIME PRN PRN Reason: excessive bleeding Ondansetron HCl (Ondansetron 4 Mg/2 Ml Sdv) 4 mg IVPUSH Q4H PRN PRN Reason: Nausea/Vomiting Ondansetron HCl (Ondansetron 4 Mg/2 Ml Sdv) 4 mg IVPUSH Q4H PRN PRN Reason: Nausea/Vomiting Oxycodone/Acetaminophen (Acetaminophen/Oxycodone 325-5 Mg Tab) 1 tab PO Q4H PRN PRN Reason: Pain (severe 7-10) Last Admin: 04/24/21 05:13 Dose: 1 tab Documented by: Oxycodone/Acetaminophen (Acetaminophen/Oxycodone 325-5 Mg Tab) 2 tab PO Q4H PRN PRN Reason: Pain (severe 7-10) Oxytocin (Oxytocin 10 Units/1 Ml Sdv) 10 unit IM ASDIRECTED PRN PRN Reason: Excessive Vaginal Bleeding Ropivacaine (Ropivacaine/Pf 400 Mg/200 Ml [employer]) 400 mg EPIDUR ASDIRECTED [facility] Sodium Chloride (Sodium Chloride 0.9% 10 Ml Syringe) 10 ml FLUSH ASDIRECTED PRN PRN Reason: Keep Vein Open Sodium Chloride (Sodium Chloride 0.9% 2.5 Ml Syringe) 2.5 ml FLUSH ASDIRECTED PRN PRN Reason: Keep Vein Open Sodium Chloride (Sodium Chloride 0.9% 20 Ml Sdv) 10 ml IV ASDIRECTED PRN PRN Reason: IV Use Discontinued Medications Citric Acid/Sodium Citrate (Citric Acid/Sodium Citrate Solution 30 Ml Cup) 30 ml PO ONETIME ONE Stop: 04/22/21 11:56 Last Admin: 04/22/21 18:29 Dose: Not Given Documented by: Dexamethasone (Dexamethasone 4 Mg/Ml Sdv) 8 mg IVPUSH ONETIME ONE Stop: 04/22/21 11:56 Last Admin: 04/22/21 18:29 Dose: Not Given Documented by: Dexamethasone (Dexamethasone 10 Mg/Ml Sdv) Confirm Administered Dose 10 mg .ROUTE .STK-MED ONE Stop: 04/22/21 16:52 Last Admin: 04/22/21 18:29 Dose: Not Given Documented by: Famotidine (Famotidine 20 Mg/2 Ml Sdv) 20 mg IVPUSH ONETIME ONE Stop: 04/22/21 11:56 Last Admin: 04/22/21 18:29 Dose: Not Given Documented by: Famotidine (Famotidine 20 Mg/2 Ml Sdv) Confirm Administered Dose 20 mg .ROUTE .STK-MED ONE Stop: 04/22/21 16:51 Last Admin: 04/22/21 18:29 Dose: Not Given Documented by: Fentanyl (Fentanyl 100 Mcg/2 Ml Sdv) Confirm Administered Dose 100 mcg .ROUTE .STK-MED ONE Stop: 04/22/21 18:20 Last Admin: 04/22/21 18:35 Dose: Not Given Documented by: Cefazolin Sodium/Dextrose 1 gm (/ Premix) 50 mls @ 100 mls/hr IV ONETIME ONE Stop: 04/22/21 12:24 Last Admin: 04/22/21 18:29 Dose: Not Given Documented by: Ropivacaine (Naropin 0.2%) Confirm Administered Dose 200 mls @ as directed .ROUTE .STK-MED ONE Stop: 04/22/21 13:38 Last Admin: 04/22/21 18:29 Dose: Not Given Documented by: Acetaminophen 1,000 mg/ Premix 100 mls @ 400 mls/hr IV ONETIME ONE Stop: 04/22/21 17:14 Last Admin: 04/22/21 18:02 Dose: 400 mls/hr Documented by: Sterile Water (Sterile Water For Injection) Confirm Administered Dose 20 mls @ as directed .ROUTE .STK-MED ONE Stop: 04/22/21 17:58 Ketorolac Tromethamine (Ketorolac 30 Mg/Ml Sdv) 30 mg IVPUSH Q6H SIVAN Stop: 04/23/21 17:31 Last Admin: 04/23/21 19:05 Dose: 30 mg Documented by: Octyl Cyanoacrylate (Octyl 2-Cyanoacrylate 1 Tube) Confirm Administered Dose 1 applic .ROUTE .STK-MED ONE Stop: 04/22/21 16:15 Last Admin: 04/22/21 18:29 Dose: Not Given Documented by: Ropivacaine (Ropivacaine 0.5% 5 Mg/Ml 30 Ml Sdv) Confirm Administered Dose 30 ml .ROUTE .STK-MED ONE Stop: 04/22/21 17:54 - Interaction Infant Disposition, : [place] in Room with Family Interaction: Holding Infant Feeding: Attempted ; Nursed Fair/Poor Support Person: Significant Other - Recovery Exam Fundal Tone: Firm Fundal Level: 1 Fingerbreadths Below Umbilicus Fundal Placement: Midline Lochia Amount: Scant Lochia Color: Rubra/Red Perineum Description: Intact, Minimal Bruising/Swelling Episiotomy/Laceration: None Bladder Status: Voiding Urinary Elimination: Indwelling Catheter - Exam General: Alert, Oriented HEENT: Pupils Equal Neck: Supple Lungs: Clear to Auscultation, Normal Respiratory Effort Cardiovascular: Regular Rate, Regular Rhythm GI/Abdominal Exam: Normal Bowel Sounds, Soft, Non-Tender, No Organomegaly, No Distention, No Abnormal Bruit, No Mass, Pelvis Stable Extremities: Normal Inspection, Normal Range of Motion, Non-Tender, No Pedal Edema, Normal Capillary Refill Skin: Warm, Dry, Intact Wound/Incisions: Healing Well Neurological: No New Focal Deficit Psy/Mental Status: Alert, Normal Affect, Normal Mood - Problem List Review Problem List Initiated/Reviewed/Updated: Yes - Assessment Assessment:: S/P repeat C/section doing well. will send home in am. - Plan Plan:: Term status post previous section she came to the office today with elevated blood pressure and dad regular contraction the patient sent to labor and delivery for monitoring she is having regular contraction every 2-3 minute and she is dilated 1 cm 80% vertex and -3. The patient is scheduled for elective repeat section in May 13, 2021 end and move the fact that she is in active labor 9 we will proceed with repeat section today.
== END 2021-04-24 12:07 | disposition home or self-care (01) | DRG 788 ==
LOC: MW.OB 11:46
PROVIDERS: ADMIT Obstetrics & Gynecology; ATTEND Obstetrics & Gynecology
PROC: 10D00Z1 Extraction of Products of Conception, Low, Open Approach (ICD-10-PCS; principal; 2021-04-22)
DX: O34.211 Maternal care for low transverse scar from previous cesarean delivery (principal); Z3A.38 38 weeks gestation of pregnancy; Z37.0 Single live birth
CPT/HCPCS: 01967; 01968; 36415; 51702; 59025; 85014; 85018; 85027; 86592; 86850; 86900; 86901; A9270-GY; J0131; J1100; J1170; J1885; J2795; J3010; J3490; J7120